=== PATIENT | male | born 1965 | race Two or more races ===

== ENCOUNTER 2021-04-16 06:04 | Day surgery (SDC) | payer SELFPAY ==
[~2021-04-16] VITALS: Wt 82.8 kg
[~2021-04-16 06:04] MED LIST: Crutch1 EACH MISC; HYDR1TAB94 PO; Keflex500 MG PO; TADA10TA PO
--- NOTE | 2021-04-16 07:19 | NUR ---
AMBULATE TO DAY SURGERY. CONFIRMED SURGERY AND SURGEON. PRE OP TEACHING DONE. LUNGS CLEAR.
--- NOTE | 2021-04-16 07:38 | NUR ---
ambulate to BR eptied bladder before going to OR
--- NOTE | 2021-04-16 10:01 | NUR ---
Dressing to procedure site clean, dry, intact with no visible drainage, swelling, erythema or bruising noted. PT TOLERATING PO FLUIDS/SOLIDS
--- NOTE | 2021-04-16 10:31 | NUR ---
Discharge instructions reviewed with patient. Patient verbalizes understanding. Copy given to patient to take home. Discharged via wheelchair to private car for ride home.
== END 2021-04-16 10:31 | disposition home or self-care (01) ==
LOC: ORSCMMR 06:04
PROVIDERS: Surgery
PROC: 8E0W4CZ Robotic Assisted Procedure of Trunk Region, Percutaneous Endoscopic Approach (ICD-10-PCS; principal; 2021-04-16 07:30)
PROC: 0HB7XZX Excision of Abdomen Skin, External Approach, Diagnostic (ICD-10-PCS; principal; 2021-04-16 07:30)
PROC: 0YU64JZ Supplement Left Inguinal Region with Synthetic Substitute, Percutaneous Endoscopic Approach (ICD-10-PCS; principal; 2021-04-16 07:30)
DX: K40.90 Unilateral inguinal hernia, without obstruction or gangrene, not specified as recurrent (principal); D22.5 Melanocytic nevi of trunk; F17.210 Nicotine dependence, cigarettes, uncomplicated
CPT/HCPCS: 49650; 11400; S2900; 88305; A9270; C1781; J0461; J0690; J1100; J1885; J2370; J2405; J2704; J3010; J7120

== ENCOUNTER 2023-04-06 22:26 | Emergency (ER) | payer OTHER ==
[~2023-04-06] VITALS: Ht 185.4 cm; Wt 88.5 kg
[2023-04-06] MEDS ORDERED: AMLODIPINE BES2.5 MG PO (22:43)
[2023-04-06 23:00] VITALS: BP 126/93
[2023-04-06 23:38] LABS: Source, Urine Clean Catch
[2023-04-07 00:02] LABS: Appearance, Urine Bloody (Clear); Bilirubin, Urine Neg (Neg); Blood, Urine 5+ (Neg); Color, Urine Red (P-Yellow); Glucose Qualitative, Urine Neg (Neg); Ketones, Urine 1+ (Neg); Leukocyte Esterase, Urine Neg (Neg); Nitrite, Urine Neg (Neg); Protein, Urine 4+ (Neg); Specific Gravity, Urine 1.015 (1.003-1.022); Urobilinogen, Urine NORM (Normal)
[2023-04-07 00:08] LABS: Bacteria Few /hpf; Red Blood Cells, Urine TNTC /hpf (0-2); Squamous Epithelial Cells Not Seen /hpf (Few)
== END 2023-04-07 01:33 | disposition home or self-care (01) ==
LOC: ER 22:26
PROVIDERS: Emergency Medicine
DX: N36.8 Other specified disorders of urethra (principal); I10 Essential (primary) hypertension; Z88.2 Allergy status to sulfonamides; Z88.8 Allergy status to other drugs, medicaments and biological substances; Z79.899 Other long term (current) drug therapy; Z87.891 Personal history of nicotine dependence
CPT/HCPCS: 81001; 87086; 99283

== ENCOUNTER → 2023-07-13 | Outpatient (CLI) | payer OTHER ==
[~2023-07-13] MED LIST changes: +AMLODIPINE BES2.5 MG PO
== END | disposition home or self-care (01) ==
LOC: LAB SHORT 07:40 → LAB 07:40
DX: J47.9 Bronchiectasis, uncomplicated (principal); J84.9 Interstitial pulmonary disease, unspecified
CPT/HCPCS: 87070; 87205

== ENCOUNTER 2024-01-08 16:36 | Inpatient (IN) | payer OTHER ==
[~2024-01-08] VITALS: Ht 185.4 cm; Wt 77.3 kg
[2024-01-08 17:30] LABS: BASOPHILS ABSOLUTE AUTO 0.08 K/mm3 (0.00-0.23); BASOPHILS PERCENT AUTO 1 % (0-2); EOSINOPHILS ABSOLUTE AUTO 1.06 K/mm3 (0.00-0.68); EOSINOPHILS PERCENT AUTO 7 % (0-6); Hemoglobin 13.6 g/dL (13.5-17.5); IMMATURE GRAN ABSOLUTE AUTO 0.06 K/mm3 (0.00-0.10); IMMATURE GRAN PERCENT AUTO 0 % (0-1); LYMPHOCYTES ABSOLUTE AUTO 0.96 K/mm3 (0.84-5.20); LYMPHOCYTES PERCENT AUTO 6 % (21-46); MONOCYTES ABSOLUTE AUTO 0.98 K/mm3 (0.16-1.47); MONOCYTES PERCENT AUTO 6 % (4-13); Mean Corpuscular HGB 31.6 pg (26.0-34.0); Mean Corpuscular Volume 93 fL (80-100); Mean Platelet Volume 8.5 fL (9.1-12.4); NEUTROPHILS ABSOLUTE AUTO 13.09 K/mm3 (1.96-9.15); NEUTROPHILS PERCENT AUTO 81 % (41-73); Platelet Count 702 K/mm3 (150-400); RDW Coefficient Variation 11.7 % (11.7-14.2); RDW Standard Deviation 39.9 fL (35.1-46.3); Red Blood Cell Count 4.31 M/mm3 (4.30-5.90); White Blood Cell Count 16.23 K/mm3 (4.00-11.30)
[2024-01-08 17:55] LABS: Albumin/Globulin Ratio 0.6 (0.8-1.8); Bilirubin, Total 0.3 mg/dL (0.1-1.0); Bun/Creatinine Ratio 13.9 (12.0-20.0); Calcium, Blood 10.1 mg/dL (8.5-10.1); Creatinine, Blood 0.79 mg/dL (0.60-1.20); Globulin, Blood 5.3 g/dL (2.2-4.0); Potassium, Blood 4.2 mmol/L (3.5-5.5); Total Protein, Blood 8.3 g/dL (6.4-8.2)
[2024-01-08] MEDS ORDERED: OxyCODONE 5 mg/Acetamin 325 mg TABLET PO ONE (19:20)
[2024-01-08] MEDS ORDERED: CefTRIAXone Sodium 1,000 MG in NS 50 ML IV ONE (19:20)
[2024-01-08] MEDS ORDERED: METOPROLOL TART25 MG PO (20:07)
[2024-01-08] MEDS ORDERED: COLACE100 MG PO (20:07)
[2024-01-08] MEDS ORDERED: OXYC5 PO (20:07)
[2024-01-08] MEDS ORDERED: GABA100 PO (20:07)
[2024-01-08] MEDS ORDERED: OMEP20ER PO (20:08)
[2024-01-08] MEDS ORDERED: Ativan1 MG PO (20:08)
[2024-01-08] MEDS ORDERED: ROSU5 PO (20:09)
[2024-01-08] MEDS ORDERED: SILD50TA PO (20:09)
[2024-01-08] MEDS ORDERED: STIOLTO RESPIMAT4 G1 IH (20:09)
[2024-01-08] MEDS ORDERED: Piperacillin/Tazobactam Sod 4.5 GM in NS 100 ML IV ONE (21:05)
[2024-01-08] MEDS ORDERED: Vancomycin HCL 1,250 MG in NS 262.5 ML IV ONE (21:05)
[2024-01-08] MEDS ORDERED: Morphine Sulfate 10 MG/ML 1MLSYR IV ONE (21:40)
[2024-01-08] MEDS ORDERED: Ondansetron HCl 2 MG / ML 2ML Vial IV PRN (22:15)
[2024-01-08] MEDS ORDERED: Acetaminophen 325 MG TABLET PO PRN (22:20)
[2024-01-08] MEDS ORDERED: FentaNYL Citrate 50 MCG/ML 2 ML Injection IV PRN (22:20)
[2024-01-08 22:22] LABS: Automated BF RBC Count 0.017 M/mm3 (0-0); Automated BF WBC Count 5.512 K/mm3 (0-999)
[2024-01-08 22:23] LABS: Body Fluid WBC Count 5512 /mm3 (0-999); RBC Count, Body Fluid 17000 /mm3 (0-0)
[2024-01-08 22:43] LABS: Albumin, Body Fluid 2.4 g/dL; Glucose, Body Fluid 119 mg/dL; Lactate Dehydrogenase, Body Fl 352 U/L; Protein, Body Fluid 4.7 g/dL; Triglycerides, Body Fluid 28 mg/dL
[2024-01-08] MEDS ORDERED: Enoxaparin 40 MG/0.4 ML SYR SC SCH (23:00)
[2024-01-08 23:03] LABS: pH, Body Fluid 8.2
[2024-01-08 23:16] LABS: Total Cell Count, Body Fluid 100
[2024-01-08 23:17] LABS: Appearance, Body Fluid Hazy (Clear); Color, Body Fluid Red (None-Yellow)
[2024-01-08 23:37] LABS: International Normalized Ratio 1.02; Prothrombin Time Results 10.7 Sec (9.7-11.5)
[2024-01-09] VITALS (13 sets, daily range): BP systolic 99–145; BP diastolic 64–99
[2024-01-09 01:11] LABS: Source, Urine Clean Catch
[2024-01-09 01:21] LABS: Bilirubin, Urine Neg (Neg); Blood, Urine Neg (Neg); Glucose Qualitative, Urine Neg (Neg); Ketones, Urine Neg (Neg); Leukocyte Esterase, Urine Neg (Neg); Nitrite, Urine Neg (Neg); Protein, Urine Neg (Neg); Urobilinogen, Urine NORM (Normal); pH, Urine 6.5 (5.0-8.0)
[2024-01-09 01:28] LABS: Appearance, Urine Clear (Clear); Color, Urine Yellow (P-Yellow)
--- NOTE | 2024-01-09 02:01 | NUR ---
ASSUMED CARE PT ARRIVED ON UNIT AT 0113. PT IS A&O X4; SPO2 >92% ON 2LNC; MAP >65. PT DENIES CP, SOB, AND NAUSEA AT THIS TIME. COMPLAINS OF SHARP PAIN ON RIGHT SIDE, ABOUT MID TORSO. PT STATES THAT HE HAS HAD IT CHECKED OUT AND THAT IT'S "ALL INTERNAL". PT STATES PAIN BEGAN WHEN HE COUGHED "REALLY HARD". PAIN IS MINIMAL AT REST AND SPIKES W/ EXERTION. PAIN DOES NOT RADIATE PER PT.
[2024-01-09] MEDS ORDERED: OxyCODONE HCL 5 MG TAB PO PRN (02:45)
[2024-01-09 03:48] LABS: BASOPHILS ABSOLUTE AUTO 0.08 K/mm3 (0.00-0.23); BASOPHILS PERCENT AUTO 1 % (0-2); EOSINOPHILS ABSOLUTE AUTO 0.99 K/mm3 (0.00-0.68); EOSINOPHILS PERCENT AUTO 7 % (0-6); Hematocrit 35.8 % (37.0-53.0); Hemoglobin 12.3 g/dL (13.5-17.5); IMMATURE GRAN ABSOLUTE AUTO 0.05 K/mm3 (0.00-0.10); IMMATURE GRAN PERCENT AUTO 0 % (0-1); LYMPHOCYTES ABSOLUTE AUTO 1.05 K/mm3 (0.84-5.20); LYMPHOCYTES PERCENT AUTO 7 % (21-46); MONOCYTES ABSOLUTE AUTO 0.89 K/mm3 (0.16-1.47); MONOCYTES PERCENT AUTO 6 % (4-13); Mean Corpuscular HGB 31.9 pg (26.0-34.0); Mean Corpuscular HGB Conc 34.4 g/dL (31.5-36.5); Mean Corpuscular Volume 93 fL (80-100); Mean Platelet Volume 8.6 fL (9.1-12.4); NEUTROPHILS ABSOLUTE AUTO 11.19 K/mm3 (1.96-9.15); NEUTROPHILS PERCENT AUTO 79 % (41-73); Platelet Count 546 K/mm3 (150-400); RDW Coefficient Variation 11.9 % (11.7-14.2); RDW Standard Deviation 40.6 fL (35.1-46.3); Red Blood Cell Count 3.85 M/mm3 (4.30-5.90); White Blood Cell Count 14.25 K/mm3 (4.00-11.30)
[2024-01-09 04:10] LABS: Albumin, Blood 2.4 g/dL (3.4-5.0); Albumin/Globulin Ratio 0.5 (0.8-1.8); Bilirubin, Total 0.3 mg/dL (0.1-1.0); Bun/Creatinine Ratio 13.9 (12.0-20.0); Calcium, Blood 9.1 mg/dL (8.5-10.1); Creatinine, Blood 0.72 mg/dL (0.60-1.20); Globulin, Blood 4.4 g/dL (2.2-4.0); Potassium, Blood 3.9 mmol/L (3.5-5.5); Total Protein, Blood 6.8 g/dL (6.4-8.2)
[2024-01-09 06:00] LABS: Influenza A, PCR NEGATIVE (NEGATIVE); Influenza B, PCR NEGATIVE (NEGATIVE); Resp Syncytial Virus, PCR NEGATIVE (NEGATIVE); SARS-Cov-2 (COVID-19) PCR, MMC NEGATIVE (NEGATIVE)
[2024-01-09] MEDS ORDERED: Ipratropium/Albuterol SulF 2.5-0.5MG/3 ML Amp INH SCH (06:40)
[2024-01-09] MEDS ORDERED: Piperacillin/Tazobactam Sod 4.5 GM in NS 100 ML IV SCH (08:00)
[2024-01-09] MEDS ORDERED: Vancomycin HCL 1,250 MG in NS 250 ML IV SCH (09:00)
[2024-01-09] MEDS ORDERED: AmLODIPine Besylate 5 MG Tab PO SCH (09:00)
[2024-01-09] MEDS ORDERED: Docusate Sodium 100 MG Cap PO SCH ×2 (09:00→21:00)
[2024-01-09] MEDS ORDERED: Gabapentin 100 MG Cap PO SCH (09:00)
[2024-01-09] MEDS ORDERED: Metoprolol Tartrate 25 MG Tab PO SCH ×2 (09:00)
--- NOTE | 2024-01-09 09:45 | NUR ---
ASSUMED CARE NOTE. PATIENT WAS AWAKE AND ALERT ON BSSR. HE WAS ABLE TO RECALL INFORMATION RELATING TO HIS HOSPITALIZATION AND EVENTS LEADING UP TO IT. PT WAS TACHYPNIC AND VERBALLY COMPLAINED OF SHARP LOCALIZED PAIN IN HIS BACK DURING BSR. STATED HIS PAIN WAS UNCONTROLLED AND WANTED TO KNOW WHEN HIS NEXT DOSE OF MEDICATION WAS. CONTINUE PLAN OF CARE.
[2024-01-09] MEDS ORDERED: Ipratropium/Albuterol SulF 2.5-0.5MG/3 ML Amp INH PRN (10:55)
[2024-01-09] MEDS ORDERED: TIOTROPIUM INH SCH (10:55)
[2024-01-09] MEDS ORDERED: OLODATEROL INH SCH (10:55)
[2024-01-09] MEDS ORDERED: Ketorolac Tromethamine 15mg Vial IV PRN (13:30)
--- NOTE | 2024-01-09 13:45 | NUR ---
AMBULATED PT. PT REQUESTED TO WALK AROUND AND USE BEDSIDE TOILET. PT VOIDED INDEPENDENTLY, LEANING AGAINST WALL FOR SUPPORT. HE REQUESTED PRIVACY. AFTER URINATING AND PUTTING PANTS ON THE PT SWITCHED TO O2 CANISTER AT 2LPM. PT TOLERATED 2L 02 FOR 60FT BEFORE DESAT TO 80% O2. PT WAS SOB BUT DENIED DIZZINESS. INCREASED O2 TO 3LPM AND PT'S OXYGEN INCREASED TO 96%. HE WAS ABLE TO WALK BACK TO HIS ROOM WITH BREAKS EVERY 20-30 FEET TO CATCH HIS BREATH. HIS O2 REMAINED BETWEEN 86-96% T/O HIS REMAINING WALK. SETTLED PT IN HIS BED, SWITCHED O2 BACK TO 2LPM WITH NO DESAT. PT STATED HE WOULD LIKE TO AMBULATE AGAIN BEFORE DINNER.
[2024-01-09] MEDS ORDERED: Pantoprazole Sodium 40 MG Injection IV SCH (14:00)
--- NOTE | 2024-01-09 16:43 | NUR ---
AMBULATED PT. PT SELF MOTIVATED TO AMBULATE AROUND UNIT AND REQUESTED TO WALK BEFORE HIS ABX WAS STARTED. AMBULATED W/ 2L O2 ON NC. PT WAS ABLE TO MAKE IT TO THE DOORWAY OF HIS ROOM BEFORE DESAT TO 84% AND INCREASED 02 TO 3L. PT SAT IMPROVED TO 96%, HE STOPPED TO CATCH BREATH EVERY 20-30FT AND EXPRESSED SOB BUT NO DISCOMFORT HIS O2 FLUCTUATED BETWEEN 88-94% WHILE WALKING. PT REQUESTED TO CONTINUE WALKING, HOWEVER HE HAD VISITORS COMING AND AGREED TO REST. PT REQUESTS TO AMBULATE AGAIN, GOING OUTSIDE OF THE UNIT AFTER DINNER.
--- NOTE | 2024-01-09 19:07 | NUR ---
SHIFT SUMMARY. PT WAS A&Ox4 THROUGHOUT SHIFT. HE WAS ON 2LPM O2 PER NC, WITH TACHYPNEA IN THE MORNING, IMPROVING IN THE PM AFTER HIS ANXIETY IMPROVED. HE WAS MOTIVATED TO AMBULATE AND WALKED 200 FEET AT 1345 AND 1545 WITH 1 NURSE ASSIST. HE REQUIRED 3LPM O2 VIA NC WHILE AMBULATING OR HE WOULD DESAT TO 80%. ON 3LPM HE REMAINED AT 88-96% CONSISTENTLY WHILE WALKING. PT REPORTED LAST BM 6 DAYS AGO, BUT HAD NOT ATE MUCH IN THE PAST WEEK. HE STATED HE HAD NO TASTE FOR FOOD AND THINGS DIDN'T HAVE FLAVOR TO HIM. THROUGHOUT SHIFT, HE DECLINED BREAKFAST AND TOOK A YOGURT AFTER, ATE MINIMAL AMOUNT OF LUNCH AND 25% OF DINNER. HIS PROVIDED HIM WITH ADDITIONAL FOOD. PT DEMONSTRATED SIGNIFCANT ANXIETY AT HIS LOSS OF FUCTION FROM BASELINE AT HOME AND REQUIRED REASSURANCE AND REMINDER TO USE HIS FLUTTER VALVE AND INCENTIVE SPIROMETER. REPORT GIVEN TO MIKEY RN PCU AND PATIENT TRANSFERRED AT END OF SHIFT TO PCU RM 13.
--- NOTE | 2024-01-09 19:15 | NUR ---
THIS RN SUPERVISED CARE, CHARTING AND REPORT OF THIS PATIENT BY THE STUDENT RN TABITHA, REPORT GIVEN TO JUS JENSEN IN PCU. PT TRANSFERRED WITH TO NEW ROOM AND WAS AMBULATORY TO NEW BED. REMAINS ON OXYGEN VIA NC @ 2L.
[2024-01-09] MEDS ORDERED: Lactobacil 2-S.Thermo-Bifido 1 1 Cap PO SCH (21:00)
[2024-01-10] VITALS (7 sets, daily range): BP systolic 123–144; BP diastolic 76–90
--- NOTE | 2024-01-10 04:52 | NUR ---
SHIFT SUMMARY. PT HAS DONE WELL OVER COURSE OF SHIFT OVERALL. AOX4, PLEASANT, COOPERATIVE WITH CARE, CALLS APPROPRIATELY, ABLE TO MAKE NEEDS KNOWN. PT HAS REQUIRED BEING TITRATED UP TO 4 L O2 VIA NC OVERNIGHT. MOSTLY MAINTAINS >90% WITH SPORADIC DESATURATIONS. WITH TRANSFER/AMBULATION, PT DESATURATED TO LOW 70s EVEN WITH BEING TITRATED UP TO 6 L O2. ONCE BACK INTO BED, TOOK FEW MINUTES TO RESATURATE EVEN WITH INCREASED O2 AND RESTING. HAS USED THE INCENTIVE SPIROMETER SPORADICALLY THROUGHOUT SHIFT. CONSISTENT URINE OUTPUT CHARTED APPROPRIATELY. TELE ON THROUGHOUT SHIFT, NO ACUTE CHANGES OR EVENTS THUS FAR. PAIN HAS BEEN ADEQUATELY MANAGED VIA EMAR. STEADY SBA TRANSFER TO BATHROOM BUT DESATURATES QUICKLY AND TAKES TIME TO RESATURATE. HI FLOW NC PUT IN PLACE BY RT EARLY IN SHIFT DUE TO PT REQUEST HE PREFERS THICKER CANNULA. ABX ADMINISTERED ON SCHEDULE WITHOUT DIFFICULTY. BED LOCKED IN LOWEST POSITION. CALL LIGHT LEFT WITHIN REACH. CONTINUING TO MONITOR.
[2024-01-10] MEDS ORDERED: Omeprazole 20 MG CapCR PO SCH (06:00)
[2024-01-10 08:37] LABS: BASOPHILS ABSOLUTE AUTO 0.08 K/mm3 (0.00-0.23); BASOPHILS PERCENT AUTO 1 % (0-2); EOSINOPHILS ABSOLUTE AUTO 1.17 K/mm3 (0.00-0.68); EOSINOPHILS PERCENT AUTO 9 % (0-6); Hemoglobin 11.8 g/dL (13.5-17.5); IMMATURE GRAN ABSOLUTE AUTO 0.04 K/mm3 (0.00-0.10); IMMATURE GRAN PERCENT AUTO 0 % (0-1); LYMPHOCYTES ABSOLUTE AUTO 0.95 K/mm3 (0.84-5.20); LYMPHOCYTES PERCENT AUTO 7 % (21-46); MONOCYTES ABSOLUTE AUTO 1.08 K/mm3 (0.16-1.47); MONOCYTES PERCENT AUTO 8 % (4-13); Mean Corpuscular HGB 31.6 pg (26.0-34.0); Mean Corpuscular HGB Conc 33.7 g/dL (31.5-36.5); Mean Corpuscular Volume 94 fL (80-100); Mean Platelet Volume 8.9 fL (9.1-12.4); NEUTROPHILS ABSOLUTE AUTO 9.66 K/mm3 (1.96-9.15); NEUTROPHILS PERCENT AUTO 75 % (41-73); Platelet Count 469 K/mm3 (150-400); RDW Coefficient Variation 11.8 % (11.7-14.2); RDW Standard Deviation 40.6 fL (35.1-46.3); Red Blood Cell Count 3.73 M/mm3 (4.30-5.90); White Blood Cell Count 12.98 K/mm3 (4.00-11.30)
[2024-01-10] MEDS ORDERED: Polyethylene Glycol 3350 17 gm PO SCH (09:00)
[2024-01-10 09:02] LABS: Albumin, Blood 2.4 g/dL (3.4-5.0); Albumin/Globulin Ratio 0.6 (0.8-1.8); Bilirubin, Total 0.4 mg/dL (0.1-1.0); Bun/Creatinine Ratio 12.2 (12.0-20.0); Calcium, Blood 9.6 mg/dL (8.5-10.1); Creatinine, Blood 0.82 mg/dL (0.60-1.20); Globulin, Blood 4.3 g/dL (2.2-4.0); Potassium, Blood 4.6 mmol/L (3.5-5.5); Total Protein, Blood 6.7 g/dL (6.4-8.2)
[2024-01-10] MEDS ORDERED: LORazepam 0.5 MG Tab PO PRN (09:55)
[2024-01-10] MEDS ORDERED: OxyCODONE HCL 5 MG TAB PO PRN ×2 (10:15→19:55)
--- NOTE | 2024-01-10 10:54 | NUR ---
AM NOTE this rn assumed care at 0700. vital signs stable. spo2 >90% on 4l nc. tele sr 80-90s patient is alert and oriented x4. perrla. neuro is intact. able to make needs known. patient reports pain in right lung and chest. medicatied per emar. see emar. patient reports exertion with activity. denies chest pain/pressure. see shift assessment for further detials. md lerma in the room this morning and discussing plan of care with the patient and patient . medication changes made, see orders. plan of care is up to date at this time
--- NOTE | 2024-01-10 14:20 | NUR ---
MEDICATED FOR PAIN 6/10 IN THE RIGHT SIDE, AND HEADACHE.
--- NOTE | 2024-01-10 17:15 | NUR ---
SHIFT SUMMARY neuro remains intact. vitals remain stable. no acute changes this shift. see md notes for further detials. patient walked around the unit two times today. requiring 6l nc and then returning back to 3-4l nc with spo2 >90%. plan of care remains up to date
--- NOTE | 2024-01-10 19:55 | NUR ---
SPOKE WITH DR. MENDOZA. NOTIFIED THAT PT INFORMED THAT HE WAS VERBALLY INFORMED THAT HE CAN HAVE THE OXYCODONE Q4P BUT THE ORDERS WERE Q6P AT THE TIME. DR. MENDOZA INFORMED THAT OXYCODONE CAN BE SWITCHED TO Q4P. CLARIFIED MEDICATION DIRECTIONS. WAS NOTIFIED ON SHIFT REPORT THAT THE PLAN WAS TO START WITH TORADOL THEN GIVE TYLENOL IF THAT DID NOT WORK, THEN OXYCODONE IF THAT DID NOT WORK, THEN FENTANYL IF THAT DID NOT WORK. DR. MENDOZA NOTIFIED WE CAN GIVE OXYCODONE ON REQUEST AND IF THAT DOES NOT WORK WE CAN GIVE TORADOL. SWITCHED OXYCODONE TO Q4. WILL INFORM PT AND CONTINUE TO MONITOR.
[2024-01-10] MEDS ORDERED: Albuterol HFA200 ACT/6.7 GM INH INH PRN (22:20)
[2024-01-10] MEDS ORDERED: LORazepam 2 MG/ML 1ML Injection IV PRN (22:40)
[2024-01-11] VITALS (51 sets, daily range): BP systolic 74–204; BP diastolic 52–147
--- NOTE | 2024-01-11 03:39 | NUR ---
PT HAS HAD FLUCTUATING ANXIETY THROUGHOUT SHIFT. OVERALL, PT HAS HAD MUCH MORE FLUCTUATING AND OVERALL INCREASED OXYGEN DEMAND OVER COURSE OF SHIFT. DISCUSSION WITH PT AND OVER SPEAKER PHONE. DISCUSSED HIGH LIKELIHOOD THAT INCREASED O2 DEMAND HAS BEEN MORE ATTRIBUTED TO PT INCREASED ANXIETY AND RESTLESSNESS THAN TO ANY PHYSICAL STIMULI THAT COULD CAUSE INCREASED O2 DEMAND. LIBERTAD AGREED WITH THIS AND BELIEVES THAT PT HAS BEEN MUCH MORE ANXIOUS TONIGHT AND BELIEVES THAT IS CONTRIBUTING TO THE INCREASED O2 DEMAND AND EPISODES OF SOB AND DESATURATION. SEVERAL TIMES THIS RN HAS GONE INTO PT ROOM TO FIND PT HAVING PULLED OFF O2 ACCIDENTALLY, SITTING AT BEDSIDE, OR GRABBING AT LINES. THESE EPISODES TEND TO LINE UP WITH EPISODES OF SOB AND DESATURATION. ADMINISTERED IV ATIVAN TWICE THUS FAR AND PO ATIVAN ONCE AT BEGINNING OF SHIFT. AFTER IV ATIVAN MORESO THAN PO, PT HAS APPEARED MORE RELAXED AND O2 DEMANDS HAVE DECREASED FOR PERIODS OF TIME ALONG WITH TACHYPNEA DECREASING. WHEN RELAXED IN BED, PT HAS MOSTLY MAINTAINED ADEQUATE SATURATION ON 4-5 L O2 WITH SOME EPISODES OF DESATURATION APPEARING TO BE CAUSED BY SOME DEGREE OF MOUTH BREATHING. PT SO FAR HAS NOT TOLERATED O2 MASK OR HAVING NC IN MOUTH RATHER THAN NOSE. WHEN DESATURATED, PT HAS BEEN ABLE TO QUICKLY RESATURATE WHEN PROMPTED TO DEEP BREATHE AND HAVING HIGH FLOW NC TUNED UP TO 14 L. JUST ADMINISTERED SECOND DOSE OF IV ATIVAN AND PT IS NOW RESTING COMFORTABLY IN BED SATURATING >90% ON 4 L O2 VIA NC AND RR HAS DROPPED TO 26 RPM. CONTINUES TO NOT TOLERATE MASK DESPITE MOUTH BREATHING. CONTINUING TO MONITOR.
--- NOTE | 2024-01-11 03:52 | NUR ---
AT THIS TIME PT REPORTS PAIN BEING 5/10 AND WHEN ASKED HOW THE PAIN IS OVERALL HE SAYS "GOOD".
[2024-01-11 04:24] LABS: BASOPHILS ABSOLUTE AUTO 0.07 K/mm3 (0.00-0.23); BASOPHILS PERCENT AUTO 1 % (0-2); EOSINOPHILS PERCENT AUTO 4 % (0-6); Hematocrit 32.8 % (37.0-53.0); Hemoglobin 11.1 g/dL (13.5-17.5); IMMATURE GRAN ABSOLUTE AUTO 0.05 K/mm3 (0.00-0.10); IMMATURE GRAN PERCENT AUTO 0 % (0-1); LYMPHOCYTES ABSOLUTE AUTO 0.61 K/mm3 (0.84-5.20); LYMPHOCYTES PERCENT AUTO 4 % (21-46); MONOCYTES ABSOLUTE AUTO 0.97 K/mm3 (0.16-1.47); MONOCYTES PERCENT AUTO 7 % (4-13); Mean Corpuscular HGB 31.4 pg (26.0-34.0); Mean Corpuscular HGB Conc 33.8 g/dL (31.5-36.5); Mean Corpuscular Volume 93 fL (80-100); Mean Platelet Volume 8.9 fL (9.1-12.4); NEUTROPHILS ABSOLUTE AUTO 11.73 K/mm3 (1.96-9.15); NEUTROPHILS PERCENT AUTO 84 % (41-73); Platelet Count 424 K/mm3 (150-400); RDW Coefficient Variation 11.8 % (11.7-14.2); RDW Standard Deviation 40.3 fL (35.1-46.3); Red Blood Cell Count 3.53 M/mm3 (4.30-5.90); White Blood Cell Count 14.03 K/mm3 (4.00-11.30)
--- NOTE | 2024-01-11 05:40 | NUR ---
LONG CONVERSATION WITH DR. MENDOZA ABOUT PT STATUS. MORNING HAS GONE ON LESS CONVINCED THAT FREQUENT DESATURATIONS, FLUCTUATING OXYGEN DEMANDS, GENERALLY INCREASED OXYGEN DEMANDS CAN BE ATTRIBUTED TO ANXIETY/RESTLESSNESS RATHER THAN SOME PHYSICAL CHANGE OR STIMULI THAT COULD BE CAUSING CHANGES. EXPLAINED STATE OF PT, PROGRESSION OF SHIFT, ETC. PT AT ONE POINT WAS ON NONREBREATHER MASK AT 7-8 L O2 AND MAINTAINING 90-91% O2 WITH SPORADIC DESATURATIONS TO MID-HIGH 80s. SPOKE WITH RIK AYALA WHO ASSESSED PT AND PUT ON AIRVO AT 50 L WITH 51% FIO2. NOTIFIED DR. MENDOZA OF ALL OF THIS. DR. MENDOZA INDICATED IT IS CERTAINLY POSSIBLE THAT PT IS EXPERIENCING INCREASING RESTLESSNESS/ANXIETY THAT IS CONTRIBUTING TO INCREASING O2 DEMAND BUT WANTS TO RULE OUT LUNG CHANGES THAT COULD BE CONTRIBUTING. ORDERED 1V CXR TO BE COMPLETED AT 0700 [address] MENDOZA INQUIRED ABOUT HOW THIS RN THOUGHT PT WOULD TOLERATE BIPAP. INFORMED THAT PT HAS BEEN PULLING AT MASKS ALL NIGHT AND THAT INSTINCT SAYS HE WOULD NOT TOLERATE WELL. COMFORTABLE WITH AIRVO AT THIS TIME DUE TO PT MAINTAINING AT 96% AND TOLERATING WELL THUS FAR. WILL ORDER CXR. PT RESTING NOW. CONTINUING TO CLOSELY MONITOR.
--- NOTE | 2024-01-11 05:49 | NUR ---
SPOKE AGAIN WITH DR. BURNETTE. DIRECTED TO START BIPAP WITH SETTINGS AT 4/8 IF AIRVO DOES NOT WORK. AT THIS TIME, PT RELAXING WITH AIRVO IN PLACE MAINTAINING AT 96% O2 SATURATION. CONTINUING TO MONITOR.
[2024-01-11] MEDS ORDERED: Furosemide 10 MG/ML 4ML Vial IV ONE (08:00)
[2024-01-11 09:23] LABS: PCO2 Arterial 45.5 mmHg (35-45); PO2 Arterial 102 mmHg (80-100); pH Blood Arterial 7.43 (7.35-7.45)
--- NOTE | 2024-01-11 10:43 | NUR ---
TRANSFER TO ICU PT TRANSFERED TO ICU 7 VIA BED AT 1025. PT IS DROWSEY AND SPEECH IS SLIGHTLY SLURRED, BUT PT IS ALERT TO SELF, FAMILY, AND SITUATION. PT IS ABLE TO ANSWER SOME QUESTIONS APPROPRIATELY, BUT IS CONFUSED AT TIMES. PT IS COMPLAINING OF PAIN TO RIGHT CHEST/RIBS. PT ON 15L HIFLOW NC AT THIS TIME. VITAL SIGNS STABLE. SPO2 >92%. RR MID 30'S TO MID 40'S. ABSENT LS TO RIGHT LOWER LUNG WAHL. LS CLEAR OTHERWISE. PT DENIES N/T AND MOVES ALL EXTREMITIES SPONTANEOUSLY. PT ASSISTED TO SIT AT BEDSIDE TO USE URINAL. IV'S SALINE LOCKED. PT SPOUSE AT BEDSIDE. WILL CONTINUE TO MONITOR.
--- NOTE | 2024-01-11 11:07 | NUR ---
am note/transfer of care this rn assumed care at 0700. spo2 >90% on airvo 50l fio2 50% respiration 42 and shallow. blood pressure stable. tele sinus tach 100. patient at the start of shift was anxious and verbalized this. at bedside attempting to help relax the patieint. patient is drowsy, but oriented to place, situation, person, and self. patient will intermittently doze off and while asleep start talking or wake up confused, for example he woke up asking his why she got rid of the dogs and the informed the patient the dogs are at home safe. patient reports having a rough night and when sleeping having nightmares. patient right lower lung ang are absent. upper lobes are clear, left lower lobes dim and coarse. dyspnea with exertion and respiratioins are shallow. gu/gi is intact, patient using bedside urinal and bedside comode. skin patient right side surgical site from right lobectomy (12/17) and thora (01/07). patient denies chest pain/pressure. patient reports headache and pain on right side, rated at 5, medicated per emar. see shift assessment for further detials. md lerma and md damon in to see patient this morning. while md lerma was in the room it was decided to put the patient on bipap due to respirations being in the 30-40 range. patient switched to bipap and abg done. patient not tolerated bipap, increased work of breathing and respiration. md lerma took off the bipap and returned to airvo 50l and 50% work of breathing improved from when on bipap, but remains in the 30-40s range and shallow. md lerma discussed with the patient and to move to icu for elective intubation due to patient current situation and declining in respiratory status. patient and agreed to this plan. this rn gave report to stanton johnston in icu. patient belongings gathered and moved to icu 7 at approx 1015.
[2024-01-11] MEDS ORDERED: MethylPREDNISolone Sod Succ 40 MG VIAL IV SCH (11:30)
[2024-01-11] MEDS ORDERED: propofoL 100 ML IV SCH (13:00)
[2024-01-11] MEDS ORDERED: fentaNYL citrate 25 MCG/ML 30ML Bag IV PRN (13:25)
[2024-01-11] MEDS ORDERED: NS 250 ML IV PRN (13:25)
[2024-01-11] MEDS ORDERED: FentaNYL Citrate 50 MCG/ML 2 ML Injection IV ONE (13:25)
[2024-01-11] MEDS ORDERED: FentaNYL Citrate 50 MCG/ML 2 ML Injection ONE (13:43)
[2024-01-11 14:00] LABS: PCO2 Arterial 54.5 mmHg (35-45); PO2 Arterial 242 mmHg (80-100); pH Blood Arterial 7.35 (7.35-7.45)
[2024-01-11 14:23] LABS: Bun/Creatinine Ratio 14.5 (12.0-20.0); Calcium, Blood 9.1 mg/dL (8.5-10.1); Creatinine, Blood 0.76 mg/dL (0.60-1.20); Potassium, Blood 4.4 mmol/L (3.5-5.5)
[2024-01-11 14:31] LABS: Source, Urine Foley catheter
[2024-01-11] MEDS ORDERED: fentaNYL citrate 1,000 MCG in NS 80 ML IV SCH (14:40)
[2024-01-11 14:43] LABS: Appearance, Urine Clear (Clear); Bilirubin, Urine Neg (Neg); Blood, Urine Neg (Neg); Glucose Qualitative, Urine Neg (Neg); Ketones, Urine 1+ (Neg); Leukocyte Esterase, Urine Neg (Neg); Nitrite, Urine Neg (Neg); Protein, Urine 1+ (Neg); Specific Gravity, Urine 1.015 (1.003-1.022); Urobilinogen, Urine NORM (Normal)
--- NOTE | 2024-01-11 14:44 | NUR ---
INTUBATION PT WITH DESATURATION TO 60'S WITH MINIMAL EXERTION AND CONTINUED INCREASE IN RR TO MID 40'S. DECISION MADE TO INTUBATE BY DR MENDOZA WITH PT CONSENT. PT MED WITH 25 MG IV ETOMIDATE AND 85 MG OF MATTHEW IV. PT INTUBATED AT 1320, WITH BILAT BREATH SOUNDS AND GOOD ETCO2 WAVEFORM NOTED. 8.0 ETT PLACED AT 24 CM AT THE LIPS. OGT PLACED. CXR DONE AND PLACEMENTS CONFIRMED BY DR MENDOZA. RT PRIMO AT BEDSIDE. VENT SETTINGS AC 30, TV 350, PEEP 5, FIO2 45%. PT INITIALLY START ON PROPOFOL AND FENTANYL GTT'S. SEE FLOWSHEET TITRATIONS. PT MED WITH IV FENTANYL AND VERSED PUSHES PER EMAR. PT CONTINUES WITH VENT ASYNCHRONY. ORDERS RECIEVED TO INCREASE FENTANYL GTT TO 150 MCG/HR AND START VERSED GTT. STEINER TEMP PROBE PLACED, UA SENT. SBW RESTRAINTS PLACED. PT CONTINUES TO MOVE ALL EXTREMITIES SPONTANEOUSLY. VITAL SIGNS STABLE. WILL CONTINUE TO MONITOR.
--- NOTE | 2024-01-11 14:50 | NUR ---
Met with pt's Lorie prior to pt's intubation today. She was tearful, states she didn't sleep last night due to talking with pt and being worried. Pt was transferred to ICU today to be intubated following an episode of acute respiratory failure. He recently had a R lung lobectomy, and was found to have cystic fibrosis at that time. Since returning home from surgery, pt's states his breathing began to worsen until they eventually came to ED on the advice of Dr. Pérez. The patient was in distress to the point he was unable to carry on any kind of meaningful conversation today. However, his did speak for him, stating he is going to remain a full code, they want everything done, and states he's too young for all this. Pt's returned home while pt was intubated, he tolerated the procedure well. called Palliative Care this afternoon, to "check in". Told her pt tolerated the procedure well and that he appears comfortable at this time. Will continue to provide support to pt's .
[2024-01-11 14:53] LABS: Color, Urine Pale Yellow (P-Yellow)
[2024-01-11] MEDS ORDERED: Midazolam HCL 50 MG in NS 40 ML IV PRN (15:00)
[2024-01-11] MEDS ORDERED: Midazolam HCl 1MG / ML 2ML Vial IV PRN (15:00)
[2024-01-11] MEDS ORDERED: Lactated Ringer's 1,000 ML IV ONE (15:31)
[2024-01-11] MEDS ORDERED: Lactated Ringer's 500 ML IV ONE (15:35)
--- NOTE | 2024-01-11 18:04 | NUR ---
SHIFT SUMMARY PT INTUBATED AND SEDATED THIS SHIFT. VENT SETTINGS AC 30, TV 350, PEEP 5, FIO2 45%. PT SEDATED WITH PROPOFOL AT 30 MCG/KG/MIN, FENTANYL AT 125 MCG/HR, AND VERSED AT 2 MG/HR. PT RESTING QUIETLY WITHOUT STIMULATION. PT BECOMES EASILY AGITATED WITH TURNING AND SUCTION. PT WITH MINIMAL ETT SECRETIONS, AND LARGE AMOUNT OF THICK, CLEAR ORAL SECRETIONS. PT WITH OGT IN PLACE, CLAMPED AT THIS TIME. PIV'S IN PLACE, NS INFUSING TKO. STEINER TEMP PROBE IN PLACE WITH CLEAR YELLOW OUTPUT NOTED. PT WITH LARGE, LOOSE BM THIS AFTERNOON. PT WITH SBW RESTRAINTS IN PLACE. VITAL SIGNS STABLE, BP SOFT, MAPS REMAIN > 65. PT SPOUSE UPDATED THIS AFTERNOON TO PT CONDITION. WILL CONTINUE TO MONITOR AND REPORT OFF TO ONCOMING RN.
[2024-01-11] MEDS ORDERED: Hydrogen Peroxide 1.5 % Solution MT SCH (20:00)
[2024-01-11 20:17] LABS: Acinetobacter baumannii DNA Not Detected copy/mL (NOT DETECT); Enterobacter cloacae DNA Not Detected copy/mL (NOT DETECT); Escherichia coli DNA Not Detected copy/mL (NOT DETECT); Haemophilus influenzae DNA Not Detected copy/mL (NOT DETECT); Klebsiella aerogenes DNA Not Detected copy/mL (NOT DETECT); Klebsiella oxytoca DNA Not Detected copy/mL (NOT DETECT); Klebsiella pneumoniae DNA Not Detected copy/mL (NOT DETECT); Moraxella catarrhalis DNA Not Detected copy/mL (NOT DETECT); Proteus sp DNA Not Detected copy/mL (NOT DETECT); Pseudomonas aeruginosa DNA Not Detected copy/mL (NOT DETECT); Serratia marcescens DNA Not Detected copy/mL (NOT DETECT); Staphylococcus aureus DNA Not Detected copy/mL (NOT DETECT); Streptococcus agalactiae DNA Not Detected copy/mL (NOT DETECT); Streptococcus pneumoniae DNA Not Detected copy/mL (NOT DETECT); Streptococcus pyogenes DNA Not Detected copy/mL (NOT DETECT)
[2024-01-11 20:18] LABS: Adenovirus DNA Not Detected (NOT DETECT); Chlamydia pneumonia Not Detected (NOT DETECT); Human Coronavirus RNA Not Detected (NOT DETECT); Human Metapneumovirus RNA Not Detected (NOT DETECT); Influenza virus A RNA Not Detected (NOT DETECT); Influenza virus B RNA Not Detected (NOT DETECT); Legionella pneumophila Not Detected (NOT DETECT); Mycoplasma pneumoniae Not Detected (NOT DETECT); Parainfluenza virus RNA Not Detected (NOT DETECT); Respiratory syncytial Vir RNA Not Detected (NOT DETECT); Rhinovirus+Enterovirus RNA Not Detected (NOT DETECT)
[2024-01-11 21:47] LABS: Base Excess Venous 6.9 mmol/L; PCO2 Venous 55.5 mmHg (38-42); pH Blood Venous 7.37 (7.34-7.37)
--- NOTE | 2024-01-11 22:00 | NUR ---
ASSUMED CARE AT 1900 PT LAYING IN BED INTUBATED AND SEDATED AT SHIFT CHANGE. HE IS SEDATED WITH PROPOFOL INFUSING AT 40MCG/KG/MIN, VERSED INFUSING AT 2MG/HR, AND FENTANYL INFUSING AT 125MCG/HR; SEDATION CHALLENGING WITH A LABILE RASS OF -4 OR +2; WHEN RASS IS +2 HE DOSE NOT FOLLOW DIRECTIONS AND PULLS ON RESTRAINTS REACHING FOR ETT; HE MOVES ALL EXTREMITIES DURING THIS TIME. CHEST TUBE PLACED AT THE BEGINNING OF SHIFT TO RT LATERAL/POSTERIOR CHEST WALL AND IS TO WATER SEAL; SEROSANGUINOUS DRAINAGE NOTED AND SAMPLE SENT TO LAB; HE TOLERATED THE PROCEDURE WELL; VENT SETTINGS NOW AC/VC 28/350/7/60%; RR 28-30. AFEBRILE. HR 70'S. SBP 90'S WITH MAP 65-75. OG CLAMPED; RECTAL TUBE PLACE D/T LARGE LIQUID BM. STEINER IN PLACE AND DRAINING TO GRAVITY. CENTRAL LINE TO RIJ PLACED; CHEST XRAY COMPLETED AFTERWARDS AND CONFIRMED CENTRAL LINE, CHEST TUBE, AND ETT VARIFIED BY DR MENDOZA. SEE SHIFT ASSESSMENT FOR FULL ASSESSMENT.
[2024-01-11] MEDS ORDERED: Etomidate 2MG / ML 10ML Vial IV ONE (22:45)
[2024-01-11] MEDS ORDERED: Propofol 10mg/ml 20 ml Vial (Procedural) IV ONE (22:45)
[2024-01-11] MEDS ORDERED: Rocuronium Bromide 10 MG/ML 5ML Injection IV ONE (22:45)
[2024-01-12] VITALS (82 sets, daily range): BP systolic 76–114; BP diastolic 48–78
[2024-01-12 04:30] LABS: BASOPHILS ABSOLUTE AUTO 0.04 K/mm3 (0.00-0.23); BASOPHILS PERCENT AUTO 0 % (0-2); EOSINOPHILS ABSOLUTE AUTO 0.17 K/mm3 (0.00-0.68); EOSINOPHILS PERCENT AUTO 1 % (0-6); Hematocrit 31.1 % (37.0-53.0); Hemoglobin 10.3 g/dL (13.5-17.5); IMMATURE GRAN ABSOLUTE AUTO 0.03 K/mm3 (0.00-0.10); IMMATURE GRAN PERCENT AUTO 0 % (0-1); LYMPHOCYTES ABSOLUTE AUTO 0.74 K/mm3 (0.84-5.20); LYMPHOCYTES PERCENT AUTO 6 % (21-46); MONOCYTES ABSOLUTE AUTO 0.94 K/mm3 (0.16-1.47); MONOCYTES PERCENT AUTO 8 % (4-13); Mean Corpuscular HGB 31.2 pg (26.0-34.0); Mean Corpuscular HGB Conc 33.1 g/dL (31.5-36.5); Mean Corpuscular Volume 94 fL (80-100); Mean Platelet Volume 9.1 fL (9.1-12.4); NEUTROPHILS ABSOLUTE AUTO 10.59 K/mm3 (1.96-9.15); NEUTROPHILS PERCENT AUTO 85 % (41-73); Platelet Count 379 K/mm3 (150-400); RDW Coefficient Variation 11.8 % (11.7-14.2); RDW Standard Deviation 41.2 fL (35.1-46.3); White Blood Cell Count 12.51 K/mm3 (4.00-11.30)
[2024-01-12 04:54] LABS: Albumin/Globulin Ratio 0.5 (0.8-1.8); Bilirubin, Total 0.3 mg/dL (0.1-1.0); Bun/Creatinine Ratio 15.3 (12.0-20.0); Calcium, Blood 9.5 mg/dL (8.5-10.1); Creatinine, Blood 0.85 mg/dL (0.60-1.20); Globulin, Blood 4.2 g/dL (2.2-4.0); Phosphorus, Blood 4.6 mg/dL (2.5-4.9); Potassium, Blood 4.3 mmol/L (3.5-5.5); Total Protein, Blood 6.2 g/dL (6.4-8.2)
--- NOTE | 2024-01-12 06:29 | NUR ---
END OF SHIFT SUMMARY NO ACUTE EVENTS SINCE LAST NOTE. HE CONT TO BE SEDATED WITH PROPOFOL INFUSING AT 25MCG/KG/MIN, VERSED INFUSING AT 2MG/HR, AND FENTANYL INFUSING AT 125MCG/HR; SEDATION CHALLENING AT TIMES WITH RASS EITHER -4 OR +2; ONE PUSH OF ATIVAN GIVEN DURING BED BATH, HE WAS SITTING UP, REACHING FOR TUBE, AND FIGHTING AGAINST VENT, ATIVAN HELPFUL. VENT SETTINGS AC/VC 28/350/7/60%; CHEST TUBE IN PLACE WITH 220ML OUTPUT. AFEBRILE. HR 60-70'S. SBP 80-90'S WITH MAP 65-70'S. OG CLAMPED; RECTAL TUBE WITH SMALL AMOUNT OF OUTPUT. STEINER IN PLACE AND DRAINING TO GRAVITY. CENTRALL INE TO RIJ PATENT WITH DRESSING C/D/I. WILL REPORT TO AM RN WHEN AVAIALBLE.
--- NOTE | 2024-01-12 07:00 | NUR ---
ASSUMPTION OF CARE PT RECEIVING PROPOFOL 25MCG/KG/MIN, FENTANYL 125MCG/HR, AND VERSED 2MG/HR. HE IS INTUBATED WITH VENT SETTINGS AC/VC 28/350/7/60%. RASS -3. COUGH/GAG INTACT. MOVES ALL EXTREMITIES BUT NOT FOLLOWING COMMANDS AT THIS TIME. LUNGS ARE COARSE. R POSTERIOR CHEST TUBE CONNECTED TO WATER SEAL DRAINING SEROSANGUINEOUS FLUID. SITE VISUALIZED WITH LIBERTAD LUU. NO CREPITUS NOTED. SINUS RHYTHM ON MONITOR WITH RATE IN 60S-70S. BP SOFT BUT MAP >65. OGT CLAMPED. BOWEL TONES ACTIVE, RECTAL TUBE PATENT. PT AFEBRILE. TEMP STEINER PATENT AND DRAINING TO GRAVITY. RIJ CENTRAL LINE DRESSING C/D/I.
[2024-01-12 08:29] LABS: Vancomycin, Trough 18.8 ug/mL (5.0-10.0)
[2024-01-12] MEDS ORDERED: Ipratropium/Albuterol SulF 2.5-0.5MG/3 ML Amp INH SCH (08:50)
[2024-01-12] MEDS ORDERED: Albuterol 2.5 MG/3 ML VIAL INH PRN (08:50)
[2024-01-12] MEDS ORDERED: Acetaminophen 160MG / 5ML 10.15 UDC PT PRN (11:05)
[2024-01-12] MEDS ORDERED: HYDROmorphone HCl/Pf 1MG SYR IV PRN (11:45)
[2024-01-12] MEDS ORDERED: MethylPREDNISolone Sod Succ 40 MG VIAL IV SCH (12:00)
--- NOTE | 2024-01-12 13:10 | NUR ---
[facility] UPDATE PLAN REMAINS TO TRANSFER TO [facility] WHEN BED IS AVAILABLE. NICOLAS FROM [facility] CALLED FOR CLINICAL UPDATED AND PROVIDED UPDATED INFO. NO UPDATED ETA FOR AN AVAILABLE BED BUT PT REMAINS ON LIST. PT UPDATED AND AGREEABLE TO PLAN.
[2024-01-12] MEDS ORDERED: Bisacodyl 10 MG Supp PR PRN (15:20)
[2024-01-12] MEDS ORDERED: Magnesium Hydroxide Conc 10 ML UDC PT PRN (15:20)
[2024-01-12] MEDS ORDERED: Gabapentin 250 MG/5 ML ORAL SYRINGE PT SCH (16:00)
--- NOTE | 2024-01-12 17:41 | NUR ---
SHIFT SUMMARY PT RECEIVING PROPOFOL 35MCG/KG/MIN AND VERSED 3MG/HR. HE REMAINS INTUBATED WITH VENT SETTINGS AC/VC 28/320/7/55%. RASS -1/-3. WITH SEDATION ON, PT WAS ABLE TO OPEN EYES, TRACK MOVEMENTS, FOLLOW SIMPLE COMMANDS AND COMMUNICATE BY NODDING/SHAKING HEAD TO ANSWER QUESTIONS. LUNGS ARE COARSE. R POSTERIOR CHEST TUBE REMAINS IN PLACE WITH 120ML SEROSANGUINEOUS DRAINAGE. SINUS RHYTHM ON MONITOR WITH RATE IN 60S-70S. MAP >65. TUBE FEEDINGS INITIATED VIA OGT THIS AFTERNOON. RECTAL TUBE PATENT WITH LIQUID BROWN DRAINAGE IN TUBING. TMAX 100.6. TEMP STEINER PATENT AND DRAINING TO GRAVITY WITH SHIFT OUTPUT OF 500ML. AT BEDSIDE THIS EVENING AND UPDATED.
[2024-01-12 19:15] LABS: PCO2 Arterial 50.6 mmHg (35-45); PO2 Arterial 94.8 mmHg (80-100)
[2024-01-12] MEDS ORDERED: Metoprolol Tartrate 25 MG Tab PT SCH (21:00)
[2024-01-12] MEDS ORDERED: Docusate Sodium 100 MG UDC PO SCH (21:00)
--- NOTE | 2024-01-12 21:42 | NUR ---
ASSUMED CARE AT 1900 PT IS LAYING IN BED INTUBATED WITH AT BEDSIDE. HE IS SEDATED WITH PROPOFOL INFUSING AT 35MCG/KG/MIN AND VERSED INFUSING AT 3MG/HR; RASS -2; HE IS RESPONSIVE TO VERBAL STIMULI AND ANSWERING Y/N QUESTIONS SLOWLY BUT APPROPRIATLY; NODDED "YES" TO PAIN, CPOT 4, PRN DILAUDID GIVEN AND HELPFUL. VENT SETTINGS AC/VC 28/320/7/55%; CHEST TUBE TO RT POSTERIOR CHEST WALL TO WATER SEAL; SMALL AMOUNT OF SEROSANGUINEOUS DRAINAGE; NO CREPITUS NOTED. AFEBRILE. NSR WITH HR 60-70'S. SBP 90'S WITH MAP 65-70. VHP INFUSING VIA OG AT 25ML/HR (GOAL 55ML/HR) WITH 30ML WATER FLUSHES Q2HR; RECTAL TUBE IN PLACE AND DRAINING BROWN STOOL. STEINER IN PLACE AND DRAINING TO GRAVITY. CENTRAL LINE TO RIJ PATENT WITH DRESSING C/D/I. SEE SHIFT ASSESSMENT FOR FULL ASSESSMENT. PT AT BEDSIDE IS PLEASENT AND ASKS QUESTIONS APPROPRIATLY. SHE STAYED AT BEDSIDE TILL 2129.
[2024-01-13] VITALS (39 sets, daily range): BP systolic 86–154; BP diastolic 60–109
[2024-01-13 04:29] LABS: BASOPHILS ABSOLUTE AUTO 0.01 K/mm3 (0.00-0.23); BASOPHILS PERCENT AUTO 0 % (0-2); EOSINOPHILS ABSOLUTE AUTO 0.01 K/mm3 (0.00-0.68); EOSINOPHILS PERCENT AUTO 0 % (0-6); IMMATURE GRAN ABSOLUTE AUTO 0.04 K/mm3 (0.00-0.10); IMMATURE GRAN PERCENT AUTO 0 % (0-1); LYMPHOCYTES ABSOLUTE AUTO 0.41 K/mm3 (0.84-5.20); LYMPHOCYTES PERCENT AUTO 4 % (21-46); MONOCYTES ABSOLUTE AUTO 0.34 K/mm3 (0.16-1.47); MONOCYTES PERCENT AUTO 4 % (4-13); Mean Corpuscular HGB 31.7 pg (26.0-34.0); Mean Corpuscular HGB Conc 33.3 g/dL (31.5-36.5); Mean Corpuscular Volume 95 fL (80-100); Mean Platelet Volume 9.3 fL (9.1-12.4); NEUTROPHILS ABSOLUTE AUTO 8.99 K/mm3 (1.96-9.15); NEUTROPHILS PERCENT AUTO 92 % (41-73); Platelet Count 340 K/mm3 (150-400); RDW Coefficient Variation 11.9 % (11.7-14.2); RDW Standard Deviation 41.1 fL (35.1-46.3); Red Blood Cell Count 3.15 M/mm3 (4.30-5.90)
[2024-01-13 04:52] LABS: Albumin, Blood 1.9 g/dL (3.4-5.0); Albumin/Globulin Ratio 0.4 (0.8-1.8); Bilirubin, Total 0.2 mg/dL (0.1-1.0); Bun/Creatinine Ratio 23.4 (12.0-20.0); Calcium, Blood 9.1 mg/dL (8.5-10.1); Creatinine, Blood 0.73 mg/dL (0.60-1.20); Globulin, Blood 4.3 g/dL (2.2-4.0); Magnesium, Blood 2.2 mg/dL (1.6-2.4); Phosphorus, Blood 3.5 mg/dL (2.5-4.9); Potassium, Blood 4.4 mmol/L (3.5-5.5); Total Protein, Blood 6.2 g/dL (6.4-8.2)
[2024-01-13 05:38] LABS: BASOPHILS PERCENT MAN 0 % (0-2); EOSINOPHILS PERCENT MAN 0 % (0-6); LYMPHOCYTES ABSOLUTE MAN 0.29 K/mm3 (0.84-5.20); LYMPHOCYTES PERCENT MAN 3 % (21-46); MONOCYTES ABSOLUTE MAN 0.78 K/mm3 (0.16-1.47); MONOCYTES PERCENT MAN 8 % (4-13); NEUTROPHILS ABSOLUTE MAN 8.72 K/mm3 (1.96-9.15); SEG NEUTROPHILS PERCENT MAN 89 % (41-73); TOTAL CELLS COUNTED 100
--- NOTE | 2024-01-13 06:45 | NUR ---
END OF SHIFT SUMMARY NO ACUTE EVENTS OVERNIGHT. HE CONT TO BE SEDATED WITH PROPOFOL INFUSING AT 35MCG/MIN AND VERSED INFUSING AT 3MG/HR; HE CONT TO BE ABLE TO ANSWER QUESTIONS APPROPRIATLY; NODDED "YES" TO PAIN AROUND Q4HR, PRN DILAUDID GIVEN AND HELPFUL. VENT SETTINGS AC/VC 28/320/7/40%; CHEST TUBE IN PLACE WITH SMALL AMOUNT OF SEROUS DRAINAGE. AFEBRILE. HR 50-70'S. SBP 90-110. VHP INFUSING VIA OG AT 45ML/HR (GOAL 55ML/HR) WITH 30ML WATER FLUSHES Q4HR; RECTAL TUBE IN PLACE WITH MODERATE AMOUNT OF OUTPUT. STEINER IN PLACE AND DRAINING TO GRAVITY. CENTRAL LINE TO RIJ PATENT WITH DRESSING C/D/I. REPORT GIVEN TO ELIZABETH LUU.
--- NOTE | 2024-01-13 07:00 | NUR ---
ASSUMPTION OF CARE PT RECEIVING PROPOFOL 25MCG/KG/MIN AND VERSED 3MG/HR. HE REMAINS INTUBATED WITH VENT SETTINGS AC/VC 28/320/7/40%. PT APPEARS AWAKE, ANSWERING QUESTIONS BY NODDING/SHAKING HEAD. PT INDICATES HE WANTS TO WRITE. PROVIDED PAPER AND PEN. PT WRITES HE WANTS HIS LIBERT[employer]. PHONE CALL PLACED TO LIBERT[employer]. PT HAS DIFFICULTY WRITING BUT IS ABLE TO COMMUNICATE SOME. PT PROVIDED EDUCATION REGARDING ETT AND IMPORTANCE OF NOT TOUCHING TUBES/LINES. PT NODS IN UNDERSTANDING. PROPOFOL AND VERSED TITRATED DOWN. PT TOLERATING. LUNGS ARE COARSE. SMALL AMOUNT OF ETT SECRETIONS. SINUS RHYTHM ON MONITOR WITH RATE IN 50S-80S. BP STABLE WITH MAP >65. TUBE FEEDING INFUSING VIA OGT AT 45ML/HR WITH GOAL RATE OF 55ML/HR. TEMP STEINER PATENT AND DRAINING TO GRAVITY.
[2024-01-13] MEDS ORDERED: FentaNYL Citrate 50 MCG/ML 2 ML Injection IV PRN (17:40)
--- NOTE | 2024-01-13 18:35 | NUR ---
UPDATE/SHIFT SUMMARY PT AWAKE MOST OF THE DAY. HE WAS RECEIVING PROPOFOL 20MCG/KG/HR AND VERSED 2MG/HR. PT ABLE TO COMMUNICATE BY NODDING/SHAKING HIS HEAD AND BY WRITING. HE HAS DIFFICULTY SPELLING AT BASELINE PER BUT ABLE TO COMMUNICATE SOME. PT MEDICATED FOR PAIN THROUGHOUT THE SHIFT PER EMAR. OFFERED PT AND VARIOUS TIMES TO INCREASE SEDATION. PT ADAMENTLY SHOOK HEAD "NO" AND STS MORE VISITORS WERE COMING IN TO VISIT HIM. HE REMAINED ON AC/VC 28/320/7/50%. OCCASIONALLY COUGHING WITH MINIMAL THICK WHITE SECRETIONS, ETT SUCTIONED NEEDED. TRANSITIONED FROM VERSED TO PRECEDEX THIS SHIFT, PT APPEARS TO TOLERATE WELL. PT'S CONTACTED DR MENDOZA WHO CAME TO BEDSIDE. FAMILY EXPRESSED CONCERNS, DR MENDOZA PROVIDED EDUCATION AND UPDATE IN PT STATUS. PROVIDED ASSURANCE TO PT THAT IT IS SAFE TO SLEEP. SEDATION INCREASED, PROPOFOL AT 30MCG/KG/MIN AND PRECEDEX 0.5MCG/KG/HR. PT REMAINS AWAKE DESPITE INCREASED SEDATION. R POSTERIOR CHEST TUBE REMAINS IN PLACE AND DRAINING SEROSANGUINEOUS FLUID. TUBE FEEDINGS INFUSING VIA OGT. RECTAL TUBE PATENT AND DRAINING TO GRAVITY. STEINER PATENT AND DRAINING TO GRAVITY. CURRENTLY, PT RECEIVING PROPOFOL 50MCG/KG/MIN AND PRECEDEX 0.7MCG/KG/HR. VISITOR AT BEDSIDE ASSISTING WITH COMMUNICATION VIA WHITEBOARD. POSITIONAL CUFF LEAK, RT NOTIFIED AND AT BEDSIDE.
[2024-01-14] VITALS (35 sets, daily range): BP systolic 96–146; BP diastolic 58–105
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
[2024-01-14 04:42] LABS: BASOPHILS ABSOLUTE AUTO 0.01 K/mm3 (0.00-0.23); BASOPHILS PERCENT AUTO 0 % (0-2); EOSINOPHILS ABSOLUTE AUTO 0.01 K/mm3 (0.00-0.68); EOSINOPHILS PERCENT AUTO 0 % (0-6); Hemoglobin 10.8 g/dL (13.5-17.5); IMMATURE GRAN ABSOLUTE AUTO 0.07 K/mm3 (0.00-0.10); IMMATURE GRAN PERCENT AUTO 1 % (0-1); LYMPHOCYTES ABSOLUTE AUTO 0.45 K/mm3 (0.84-5.20); LYMPHOCYTES PERCENT AUTO 4 % (21-46); MONOCYTES PERCENT AUTO 3 % (4-13); Mean Corpuscular HGB 31.1 pg (26.0-34.0); Mean Corpuscular HGB Conc 32.7 g/dL (31.5-36.5); Mean Corpuscular Volume 95 fL (80-100); Mean Platelet Volume 9.3 fL (9.1-12.4); NEUTROPHILS ABSOLUTE AUTO 10.84 K/mm3 (1.96-9.15); NEUTROPHILS PERCENT AUTO 92 % (41-73); Platelet Count 353 K/mm3 (150-400); RDW Standard Deviation 41.8 fL (35.1-46.3); Red Blood Cell Count 3.47 M/mm3 (4.30-5.90); White Blood Cell Count 11.78 K/mm3 (4.00-11.30)
[2024-01-14 05:02] LABS: Albumin, Blood 2.1 g/dL (3.4-5.0); Albumin/Globulin Ratio 0.5 (0.8-1.8); Bilirubin, Total 0.3 mg/dL (0.1-1.0); Bun/Creatinine Ratio 27.4 (12.0-20.0); Calcium, Blood 8.9 mg/dL (8.5-10.1); Creatinine, Blood 0.73 mg/dL (0.60-1.20); Globulin, Blood 4.4 g/dL (2.2-4.0); Phosphorus, Blood 3.4 mg/dL (2.5-4.9); Potassium, Blood 4.2 mmol/L (3.5-5.5); Total Protein, Blood 6.5 g/dL (6.4-8.2)
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
--- NOTE | 2024-01-14 07:20 | NUR ---
ASSUME CARE: I have assumed care of this patient.
[2024-01-14] MEDS ORDERED: Midazolam HCL 50 MG in NS 40 ML IV PRN (09:35)
[2024-01-14] MEDS ORDERED: QUEtiapine Fumarate 25 MG Tab PT SCH (10:00)
[2024-01-14 10:24] LABS: Thyroid Stimulating Hormone 0.918 uIU/mL (0.360-4.800)
[2024-01-14] MEDS ORDERED: Thiamine HCl 100 MG in NS 50 ML IV SCH (11:00)
[2024-01-14] MEDS ORDERED: Folic Acid 1 MG in NS 50 ML IV SCH (11:00)
[2024-01-14] MEDS ORDERED: FentaNYL Citrate 50 MCG/ML 2 ML Injection IV PRN (11:05)
--- NOTE | 2024-01-14 19:25 | NUR ---
SHIFT SUMMARY: Pt was transitioned off precedex and restarted on versed today with good effect. Seroquil also given per tube. Pt was very agitated throughout the day. He would hit the side rails, gesture for items around room, and flip off nurse. Pt's was updated at bedside this morning. She received a few more updates via telephone. Pt had increased secretions this afternoon; sputum culture sent. No crepitus noted around chest tube. Hines patent and draining to gravity.
--- NOTE | 2024-01-14 23:18 | NUR ---
ASSUMED CARE AT 1900 PT LAYING IN BED SEDATED AND INTUBATED. HE IS SEDATED WITH PROPOFOL INFUSING AT 50MCG/KG/MIN AND VERSED INFUSING AT 8MG/HR; RASS -3, WILL TITRATE DOWN FOR A GOAL OF RASS -2. VENT SETTINGS AC/VC 28/320/7/45%; CHEST TUBE TO WATER SEAL WITH SEROSANGUINEOUS FLUID. AFEBRILE. HR 50-60'S. SBP 120'S WITH MAP >65. VHP INFUSING VIA OG AT 55ML/HR (GOAL) WITH 30ML WATER FLUSHES Q2HR; RECTAL TUBE IN PLACE AND DRAINING BROWN STOOL. STEINER IN PLACE AND DRAINING TO GRAVITY. CENTRAL LINE TO RIJ PATENT WITH DRESSING C/D/I. SEE SHIFT ASSESSMENT FOR FULL ASSESSMENT. PT LIBERTAD CALLED FOR AN UPDATE. SHE WAS PLEASENT AND APPRECIATIVE OF STAFF BUT STRESSED ABOUT CURRENT SITUATION.
[2024-01-15] VITALS (35 sets, daily range): BP systolic 104–157; BP diastolic 72–95
[2024-01-15 04:21] LABS: BASOPHILS ABSOLUTE AUTO 0.02 K/mm3 (0.00-0.23); BASOPHILS PERCENT AUTO 0 % (0-2); EOSINOPHILS PERCENT AUTO 1 % (0-6); Hematocrit 30.7 % (37.0-53.0); Hemoglobin 9.9 g/dL (13.5-17.5); IMMATURE GRAN ABSOLUTE AUTO 0.05 K/mm3 (0.00-0.10); IMMATURE GRAN PERCENT AUTO 1 % (0-1); LYMPHOCYTES ABSOLUTE AUTO 0.46 K/mm3 (0.84-5.20); LYMPHOCYTES PERCENT AUTO 4 % (21-46); MONOCYTES ABSOLUTE AUTO 0.73 K/mm3 (0.16-1.47); MONOCYTES PERCENT AUTO 7 % (4-13); Mean Corpuscular HGB 31.2 pg (26.0-34.0); Mean Corpuscular HGB Conc 32.2 g/dL (31.5-36.5); Mean Corpuscular Volume 97 fL (80-100); Mean Platelet Volume 9.6 fL (9.1-12.4); NEUTROPHILS PERCENT AUTO 87 % (41-73); Platelet Count 356 K/mm3 (150-400); RDW Coefficient Variation 12.2 % (11.7-14.2); RDW Standard Deviation 43.8 fL (35.1-46.3); Red Blood Cell Count 3.17 M/mm3 (4.30-5.90); White Blood Cell Count 10.56 K/mm3 (4.00-11.30)
[2024-01-15 04:43] LABS: Albumin, Blood 1.9 g/dL (3.4-5.0); Anion Gap 4 mmol/L (3-11); Blood Urea Nitrogen 20 mg/dL (8-24); Bun/Creatinine Ratio 28.1 (12.0-20.0); CO2, Blood 34 mmol/L (21-32); Calcium, Blood 8.9 mg/dL (8.5-10.1); Chloride, Blood 110 mmol/L (98-108); Creatinine, Blood 0.71 mg/dL (0.60-1.20); Glomerular Filtration Rate 105 (60-); Glucose, Blood 136 mg/dL (70-99); Phosphorus, Blood 3.1 mg/dL (2.5-4.9); Potassium, Blood 4.3 mmol/L (3.5-5.5); Sodium, Blood 144 mmol/L (136-145)
--- NOTE | 2024-01-15 06:27 | NUR ---
END OF SHIFT SUMMARY NO ACUTE EVENTS OVERNIGHT. SLOWLY BROUGHT SEDATION DOWN TO ACHIEVE A RASS OF -2; PROPOFOL INFUSING AT 50MCG/KG/MIN AND VERSED INFUSING AT 5MG/HR. VENT SETTINGS AC/VC 28/320/7/40%; CHEST TUBE TO WATER SEAL WITH SMALL AMOUNT OF OUTPUT. HR 50-60'S. SBP 120-130'S. VHP INFUSING VIA OG AT 55ML/HR (GOAL) WITH 30ML WATER FLUSHES Q2HR. RECTAL TUBE AND STEINER IN PLACE AND DRAINING TO GRAVITY. CENTRAL LINE TO RIJ PATENT WITH DRESSING C/D/I. WILL REPORT TO AM RN WHEN AVAILABLE.
--- NOTE | 2024-01-15 07:40 | NUR ---
ASSUMED CARE: REPORT RECEIVED FROM LIBERTAD Garcia RN. ASSUMED CARE OF THIS PT AT APPROX 0700. ON ASSESSMENT, THE PT IS INTUBATED & LIGHTLY SEDATED, RASS 0/+1. PROPOFOL & VERSED INFUSING - TITRATIONS IN FLOWSHEET. THE PT HAS BEEN REDIRECTED & INSTRUCTED NOT TO TOUCH THE ETT OR PULL ON LINES, HE THEN "FLIPS OFF" STAFF W/ MIDDLE FINGERS ON BOTH HANDS & GESTURES FOR US TO LEAVE THE ROOM. LS COARSE/ MOIST T/O, DIM ON RIGHT SIDE. HX RECENT RML/RLL LOBECTOMY. VENT SETTINGS: AC/VC 28/320/7/40% W/ O2 SATS > 95%. OCCASIONAL PRODUCTIVE COUGH W/ COPIOUS AMNTS THICK WHITE SPUTUM SUCTIONED THROUGH ETT. MONITOR SHOWS SB-SR W/ HR 50-60s, BP STABLE. OGT IN PLACE W/ TUBE FEEDS VHP INFUSING AT GOAL RATE 55 ML/HR W/ NO S/SX INTOLERANCE NOTED. RECTAL TUBE IN PLACE, DRAINING BROWN LIQUID STLS. SKIN CONDITION OVERALL INTACT, Q2H REPOSITIONING TO MAINTAIN SKIN INTEGRITY. WILL CONTINUE TO MONITOR & UPDATE NEEDED.
[2024-01-15 08:57] LABS: Vancomycin, Trough 17.4 ug/mL (5.0-10.0)
--- NOTE | 2024-01-15 09:30 | NUR ---
DR BLEDSOE: PROVIDER AT BEDSIDE THIS AM TO EVAL PT. HE BELIEVES THE PT COULD BE EXPERIENCING ICU DELERIUM SYMPTOMS & WOULD LIKE TO TITRATE VERSED DOWN/ OFF. OLANZAPINE ORDERED & VERSED SHOULD BEGIN TO BE TITRATED DOWN 1 HR AFTER OLANZAPINE ADMIN. CHEST TUBE OUTPUT INCREASED YESTERDAY, NO PLANS FOR REMOVAL AT THIS TIME. PEEP DECREASED TO 5 & FIO2 DECREASED TO 30%. NO OTHER CHANGES AT THIS TIME.
[2024-01-15] MEDS ORDERED: OLANZapine 10 MG Tab PT SCH (10:00)
[2024-01-15] MEDS ORDERED: OLANZapine 10 MG Vial IM PRN (10:40)
--- NOTE | 2024-01-15 18:05 | NUR ---
SHIFT SUMMARY: NO ACUTE CHANGES SINCE PRIOR UPDATES. THE PT HAS BEEN ABLE TO REST THIS SHIFT W/ LESS AGITATION NOTED. VERSED TITRATED DOWN THROUGHOUT DAY, NOW INFUSING AT 3 MG/HR W/ PROPOFOL INFUSING AT 55 MCG/KG/MIN. FENTANYL PRN SEDATION ADJUNCT. LS COARSE/ MOIST W/ OCCASIONAL MOIST COUGH & COPIOUS AMNTS THICK WHITE SPUTUM SUCTIONED THROUGH ETT. VENT SETTINGS: AC/VC 28/320/5/30% W/ O2 SATS > 95%. CHEST TUBE IN PLACE TO RIGHT POSTERIOR CHEST WALL, PLACED TO WATER SEAL W/ SS DRAINAGE NOTED IN COLLECTION DEVICE. INSERTION SITE WNL; CHG DRESSING IN PLACE W/ NO CREPITUS OR LEAKING NOTED AROUND SITE. MONITOR SHOWS SB-SR W/ HR 50-60s, BP STABLE. OGT IN PLACE W/ VHP INFUSING AT GOAL RATE OF 55 ML/HR, NO S/SX INTOLERANCE NOTED. RECTAL TUBE PATENT/ DRAINING BROWN LIQUID STLS. TEMP STEINER PATENT/ DRAINING YELLOW URINE - IN PLACE FOR STRICT I&O MONITORING. SKIN CONDITION OVERALL INTACT, Q2H REPOSITIONING TO MAINTAIN SKIN INTEGRITY. WILL CONTINUE TO MONITOR & REPORT OFF TO ONCOMING RN.
[2024-01-15] MEDS ORDERED: MethylPREDNISolone Sod Succ 40 MG VIAL IV SCH (21:00)
--- NOTE | 2024-01-15 22:39 | NUR ---
ASSUMED CARE ASSUMED CARE AT 1900. INTUBATED AND SEDATED. PROPOFOL, AND VERSED GTT INFUSING. PT AWAKE, HITTING BED RAIL WITH HAND. MOTIONING FOR CLIPBOARD AND PEN. ATTEMPTED TO WRITE MESSAGE BUT THIS RN UNABLE TO READ. PT DID SQUEEZE HANDS AND MOVES TOES ON COMMAND. WHEN ASKED TO LIFE ARMS, OR OTHER TASKS, PT SHAKES HEAD NO AND "FLIPS OFF" STAFF. PT ATTEMPTING TO HIT STAFF DURING TURNS, SUCTIONING, AND MEDICATION ADMINISTRATION. RR 40'S, SBP 140-150'S. FENTANYL AND PRN ZYPREXA GIVEN. DISCUSSED WITH DR BLEDSOE AND WILL START PRECEDEX AND CONTINUE TO TRY AND TITRATE VERSED GTT DOWN. OTHER VSS. SR RATE 70'S. OGT W/ TF AT GOAL. CHEST TUBE TO WATER SEAL ON RIGHT. STEINER PATENT AND DRAINING TO GRAVITY. RECTAL TUBE IN PLACE.
[2024-01-16] VITALS (38 sets, daily range): BP systolic 134–187; BP diastolic 75–119
[2024-01-16 04:14] LABS: BASOPHILS ABSOLUTE AUTO 0.03 K/mm3 (0.00-0.23); BASOPHILS PERCENT AUTO 0 % (0-2); EOSINOPHILS ABSOLUTE AUTO 0.36 K/mm3 (0.00-0.68); EOSINOPHILS PERCENT AUTO 3 % (0-6); Hematocrit 30.7 % (37.0-53.0); Hemoglobin 9.8 g/dL (13.5-17.5); IMMATURE GRAN ABSOLUTE AUTO 0.05 K/mm3 (0.00-0.10); IMMATURE GRAN PERCENT AUTO 1 % (0-1); LYMPHOCYTES ABSOLUTE AUTO 0.74 K/mm3 (0.84-5.20); LYMPHOCYTES PERCENT AUTO 7 % (21-46); MONOCYTES ABSOLUTE AUTO 0.75 K/mm3 (0.16-1.47); MONOCYTES PERCENT AUTO 7 % (4-13); Mean Corpuscular HGB 31.1 pg (26.0-34.0); Mean Corpuscular HGB Conc 31.9 g/dL (31.5-36.5); Mean Corpuscular Volume 98 fL (80-100); Mean Platelet Volume 9.2 fL (9.1-12.4); NEUTROPHILS PERCENT AUTO 82 % (41-73); Platelet Count 369 K/mm3 (150-400); RDW Coefficient Variation 12.5 % (11.7-14.2); RDW Standard Deviation 44.5 fL (35.1-46.3); Red Blood Cell Count 3.15 M/mm3 (4.30-5.90); White Blood Cell Count 10.73 K/mm3 (4.00-11.30)
[2024-01-16 04:30] LABS: Bun/Creatinine Ratio 24.2 (12.0-20.0); Creatinine, Blood 0.74 mg/dL (0.60-1.20); Phosphorus, Blood 3.9 mg/dL (2.5-4.9); Potassium, Blood 4.2 mmol/L (3.5-5.5)
--- NOTE | 2024-01-16 06:22 | NUR ---
SHIFT SUMMARY NO ACUTE EVENTS T/O NIGHT. PT PLACED IN RESTRAINTS AT 2330. PT THROWING PILLOWS ON GROUND, TAKING OFF SPO2 PROBE, RESTING HANDS ON ETT AND NOT EASILY DIRECTABLE. PRECEDEX, VERSED, AND PROPOFOL GTT INFUSING. SEE FLOWSHEET FOR TITRATIONS. VSS. SR RATE 60-80'S. OGT W/ TF AT GOAL. STEINER PATENT AND DRAINING TO GRAVITY. RECTAL TUBE IN PLACE. WILL REPORT OFF TO ONCOMING RN.
--- NOTE | 2024-01-16 07:30 | NUR ---
ASSUMED CARE: REPORT RECEIVED FROM JUS ADLER. ASSUMED CARE OF THIS PT AT APPROX 0700. ON ASSESSMENT, THE PT IS AWAKE, ORIENTED TO SELF & EASILY AGITATED. BILAT SOFT WRIST RESTRAINTS IN PLACE & WHEN TRIALED OFF, PT REACHES FOR ETT & PUSHES STAFF HANDS AWAY WHILE TRYING TO COMPLETE CARE MEASURES. HE HAS ATTEMPTED TO WRITE ON CLIPBOARD FOR COMMUNICATION BUT HANDWRITING/ SPELLING DIFFICULTIES LIMIT THIS METHOD. LS ARE COARSE T/O, DIM IN BASES. VENT SETTINGS: AC/VC 28/320/5/30% W/ O2 SATS > 92%. CHEST TUBE TO RIGHT POSTERIOR CHEST WALL W/ SS DRAINAGE NOTED, DRESSING REMAINS CDI W/ NO CREPITUS NOTED AROUND INSERTION SITE ON PALPATION. MONITOR SHOWS SB-SR W/ HR 40-60s, BP STABLE. OGT IN PLACE W/ VHP INFUSING AT GOAL RATE OF 55 ML/HR, NO S/SX INTOLERANCE NOTED. RECTAL TUBE PATENT/ DRAINING BROWN LIQUID STLS. TEMP STEINER PATENT/ DRAINING CLEAR YELLOW URINE - IN PLACE FOR STRICT I&O MONITORING. SKIN CONDITION OVERALL INTACT, Q2H REPOSITIONING TO MAINTAIN SKIN INTEGRITY. WILL CONTINUE TO MONITOR & UPDATE NEEDED.
--- NOTE | 2024-01-16 09:12 | NUR ---
ASKED PT IF IT WAS OKAY FOR GENERAL CLERK TO HELP PERFORM CARE - PT NODDED YES
--- NOTE | 2024-01-16 09:50 | NUR ---
DR BLEDSOE: PROVIDER AT BEDSIDE THIS AM TO EVAL PT. HE HAS PLACED THE VENT ON SPONTANEOUS SETTINGS W/ PS 5, PEEP 5 & 30% FIO2. THE PT IS TOLERATING THIS WELL INTERMITTENTLY. WHEN ANXIOUS OR IRRITATED, THE PT's RR INCREASES TO 40s & TVs < 300. HE RESPONDS WELL TO VERBAL REASSURACE FROM & IS ABLE TO SLOW RR & BEGIN TO CALM. DISCUSSED LARGE AMNT OF THICK TENACIOUS SECRETIONS SUCTIONED THROUGH ETT & INCREASINGLY MOIST LUNG SOUNDS SINCE THIS AM. THE PLAN IS FOR THE PT TO BE ON SPONTANEOUS SETTINGS LONG HE CAN TOLERATE BUT EXTUBATION IS UNLIKELY RELATED TO SECRETIONS & ANXIETY AT THIS TIME. GOAL IS TO TITRATE PRECEDEX UP NEEDED FOR ANXIETY MANAGEMENT WHILE TITRATING PROPOFOL DOWN. NO OTHER CHANGES AT THIS TIME.
[2024-01-16] MEDS ORDERED: AmLODIPine Besylate 5 MG Tab PT SCH (15:15)
--- NOTE | 2024-01-16 19:13 | NUR ---
SHIFT SUMMARY: THE PT HAS CONTINUED TO IMPROVE THIS EVENING. HE IS BEING FULLY COOPERATIVE W/ CARE MEASURES AT THIS POINT & HAS BEEN UNRESTRAINED SINCE 1400 W/ NO ATTEMPTS TO PULL AT LINES OR TUBES. LS ARE COARSE, DIM & OCCASIONALLY MOIST WHEN NEEDING SUCTIONED. VENT SETTINGS: AC/VC 28/320/5/30% W/ O2 SATS > 92%. MOD AMNTS THICK TENACIOUS WHITE-CLEAR SPUTUM SUCTIONED THROUGH ETT. MONITOR SHOWS SR W/ HR 60s, BP REMAINS ELEVATED WHEN AWAKE & MOVING AROUND, NORVASC STARTED THIS EVENING PER DR BLEDSOE W/ SOME IMPROVEMENT NOTED. OGT IN PLACE W/ TUBE FEEDS INFUSING AT GOAL RATE W/ NO S/SX INTOLERANCE. RECTAL TUBE DRAINING BROWN LIQUID STLS. TEMP STEINER PATENT/ DRAINING CLEAR YELLOW URINE. SKIN CONDITION OVERALL INTACT, Q2H REPOSITIONING TO MAINTAIN SKIN INTEGRITY. WILL CONTINUE TO MONITOR & REPORT OFF TO ONCOMING RN.
--- NOTE | 2024-01-16 22:26 | NUR ---
ASSUMED CARE ASSUMED CARE AT 1900. PT INTUBATED AND SEDATED. AC/VC 28/320/5/30% RR 28-45. PROPOFOL AND PRECEDEX GTT INFUSING. RASS 0. SEE FLOWSHEET FOR RATE AND TITRATIONS. PT ALERT, COMMUNICATING WELL WITH PEN/PAPER AND GESTURES. FOLLOWS COMMANDS AND MOVES ALL EXTREMITIES. HTN AT TIMES. FEBRILE, BLANKETS TAKEN OFF AND FAN ON PT. OTHER VSS. SR/SB 50-60'S. CHEST TUBE TO R POSTERIOR CHEST WALL. OGT W/ TF AT GOAL. STEINER PATENT AND DRAINING TO GRAVITY. RECTAL TUBE IN PLACE. CALL LIGHT IN REACH. AT BEDSIDE.
[2024-01-17] VITALS (47 sets, daily range): BP systolic 102–162; BP diastolic 65–101
--- NOTE | 2024-01-17 00:55 | NUR ---
UPDATE PT SITTING UP TO THE POINT OF HEAD OVER KNEES STRETCHING ETT AND CHEST TUBE, PULLING GOWN OFF, AND THEN PT WRITING "I CAN'T BREATHE". PT COARSE T/O. SPO2 GREATER THEN 92%. RR 40'S. ETT SUCTIONED, WITH SMALL AMOUNT OF THICK WHITE. PRECEDEX TITRATED UP, CHEST TUBE APPEARS IN PLACE AND RE TAPED DOWN. WITH THERAPEUTIC COMMUNICATION AND REPOSITIONING PT NOW RESTING QUIETLY. REMAINS AT BEDSIDE.
[2024-01-17 05:38] LABS: BASOPHILS ABSOLUTE AUTO 0.07 K/mm3 (0.00-0.23); BASOPHILS PERCENT AUTO 1 % (0-2); EOSINOPHILS ABSOLUTE AUTO 0.82 K/mm3 (0.00-0.68); EOSINOPHILS PERCENT AUTO 7 % (0-6); Hematocrit 33.7 % (37.0-53.0); IMMATURE GRAN ABSOLUTE AUTO 0.07 K/mm3 (0.00-0.10); IMMATURE GRAN PERCENT AUTO 1 % (0-1); LYMPHOCYTES ABSOLUTE AUTO 0.91 K/mm3 (0.84-5.20); LYMPHOCYTES PERCENT AUTO 7 % (21-46); MONOCYTES ABSOLUTE AUTO 0.84 K/mm3 (0.16-1.47); MONOCYTES PERCENT AUTO 7 % (4-13); Mean Corpuscular HGB 31.3 pg (26.0-34.0); Mean Corpuscular HGB Conc 32.6 g/dL (31.5-36.5); Mean Corpuscular Volume 96 fL (80-100); Mean Platelet Volume 9.1 fL (9.1-12.4); NEUTROPHILS ABSOLUTE AUTO 9.69 K/mm3 (1.96-9.15); NEUTROPHILS PERCENT AUTO 78 % (41-73); Platelet Count 387 K/mm3 (150-400); RDW Coefficient Variation 12.5 % (11.7-14.2); RDW Standard Deviation 43.6 fL (35.1-46.3); Red Blood Cell Count 3.52 M/mm3 (4.30-5.90)
[2024-01-17] MEDS ORDERED: Lansoprazole 15 MG TAB.RAP.DR PT SCH (06:00)
--- NOTE | 2024-01-17 06:16 | NUR ---
SHIFT SUMMARY NO ACUTE EVENTS T/O NIGHT. NO VENT SETTINGS CHANGES. PRECEDEX AND PROPOFOL GTT REMAIN INFUSING. PT REMAINS ALERT AND COOPERATIVE T/O NIGHT. ABLE TO SLEEP STARTING APPROX 0200. VSS. SR/SB 50-70'S. T-MAX 100.6. OGT WITH TF AT GOAL. STEINER PATENT AND DRAINING TO GRAVITY. CHEST TUBE TO R POSTERIOR CHEST WALL. RECTAL TUBE IN PLACE. AT BEDSIDE T/O NIGHT. WILL REPORT OFF TO DAY RN.
[2024-01-17 06:22] LABS: Albumin/Globulin Ratio 0.5 (0.8-1.8); Bilirubin, Total 0.2 mg/dL (0.1-1.0); Bun/Creatinine Ratio 27.9 (12.0-20.0); Calcium, Blood 8.9 mg/dL (8.5-10.1); Creatinine, Blood 0.68 mg/dL (0.60-1.20); Globulin, Blood 4.1 g/dL (2.2-4.0); Magnesium, Blood 2.1 mg/dL (1.6-2.4); Phosphorus, Blood 3.9 mg/dL (2.5-4.9); Potassium, Blood 3.8 mmol/L (3.5-5.5); Total Protein, Blood 6.1 g/dL (6.4-8.2)
[2024-01-17] MEDS ORDERED: Folic Acid 1 MG TAB PT SCH (09:00)
[2024-01-17] MEDS ORDERED: Thiamine HCl 100 MG Tab PT SCH (09:00)
--- NOTE | 2024-01-17 11:02 | NUR ---
CARE ASSUMPTION/EXTUBATION DURING BEDSIDER SHIFT REPORT Radha ROTH RN THE PT IS LYING INBED INTUBATED AND SEDATED. VEMNT SETTING ARE AC/VC 28/320/5.0 W 30% FIO2. PT ON PROPOFOL AND PRECEDEX GTT'S, SEE FLOWSHEET FOR DETAILS. TP'S MONITOR SHOWING SB 50'S. BP WNL AND STABLE. PT HAS CT IN PLACE TO R POSTERIOR CHEST TUBE IN PLACE DRAINING INTO [employer] COLLECTION DEVICE. PT'S SPOUSE ASLEEP AT BEDSIDE. EXTUBATION PT EXTUBATED PER RT AT 1057 AND PLACED ON 6L NC. PT COUGHING UP LARGE AMOUNTS OF WHITE SECRETIONS. RESP ARE EVEN AND FAIRLY UNLABORED. DR. BLEDSOE AT BS ASSESSING PT POST EXTUBATION.
--- NOTE | 2024-01-17 14:42 | NUR ---
SWALLOW EVAL PT GIVEN TAMPA BEDSIDE SWALLOW EVAL BY THIS RN. UPON DRINKING 3 OZ WATER THE PT BEGAN COUGHING AGGRESSIVELY. SWALLOW EVAL DOCUMENTED FAILED. DR. BLEDSOE NOTIFIED OF THIS EVENT AND FORMAL SPEECH THERAPY EVALUATION ORDERED.
[2024-01-17] MEDS ORDERED: Lidocaine 2% Jelly Uro-Jet UR ONE (16:30)
--- NOTE | 2024-01-17 17:42 | NUR ---
DAY SHIFT SUMMARY PT BEGAN THIS SHIFT INTUBATED ON THE VENTILATOR BUT WAS EXTUBATED AT 1057 THIS AM. PT MAINTAINING SPO2 >92% ON 3-6L OXY-MASK THIS SHIFT. PT ABLE TO COUGH AND EXPELL VERY LARGE AMOUNTS OF THICK WHITE SECRETIONS POST EXTUBATION AND HAS HAD MINIMAL SECRETIONS THROUGHOUT THE DAY. PT HAS MAINTAINED ALERT AND ORIENTED THIS SHIFT W MODERATE ANXIETY ON PRECEDEX GTT. PT UP IN THE RECLINER FOR MOST OF THE DAY POST EXTUBATION TOLERATING THAT WELL. PT TRANSFERING SELF TO RECLINER FROM THE BED USING FWW AND GAIT BELT, O2 TURNED UP TO 15L PROPHYLACTICALLY DURING AMBULATION. PT HAD STEINER CATHETER AND RECTAL TUBE REMOVED THIS SHIFT. PT UNABLE TO VOID THIS SHIFT AND AFTER MULTIPLE ATTEMPTS TO VOID AND BLADDER SCAN >450 OT WAS STRAIGHT CATHED X1 REMOVING 450ML CLEAR YELLOW URINE. PT DID NOT HAVE A BM THIS SHIFT. PT GIVEN BEDSIDE SWALLOW EVALUATION THIS SHIFT TO WHICH HE INSTANTLY BEGAN COUGHING AGGRESSIVELY AFTER DRINKING THE WATER, ST EVAL ORDERED BY DR. BLEDSOE AND PT TO REMAIN NPO UNTIL EVAL. PT'S CT PATENT AND DRAINED 210ML CLEAR YELLOW FLUID THIS SHIFT. PT'S MONITOR SHOWING SB/SR 50'S-60'S THIS SHIFT. BP WNL AND STABLE. PT AFEBRILE THIS SHIFT. PT HAS BEEN PLEASANT AND COOPERATIVE WITH CARE THIS SHIFT. PT CURRENTLY SITTING BACK IN BED ON 4L OXY-MASK W FAMILY AT BEDSIDE. PRECEDEX GTT INFUSING W TKO NS, SEE FLOWSHEET FOR DETAILS. PT HAD CHG BATH THIS SHIFT. PT'S CL DRESSING CHANGED THIS SHIFT. WILL REPORT TO ONCOMING RN.
--- NOTE | 2024-01-17 20:48 | NUR ---
ASSUME CARE PT RESTING IN BED DURING BSSR WITH AT BEDSIDE. PT WEARING OXY MASK WITH O2 AT 6L. QUAD LUMEN IJ IN PLACE WITH PRECEDEX AND ANTIBIOTIC INFUSING. PT AND ENDORSE PT VOICE BEING QUIETER AND WEAKER THAN NORMAL. PT EDUCATED ON O2 TITRATION, O2 WAS TURNED DOWN TO 4L AFTER PATIENT USED INCENTIVE SPIROMETER AND COUGHING UP PHLEGM, RN AND RT IS TO MAKE CHANGES TO O2 DUE TO PT SAFETY AND CONTINUITY OF CARE/COMMUNICATION. PT STATES UNDERSTANDING. PT ALERT AND PLEASANT, HAS NO C/O OF PAIN AT THIS TIME. UPDATED PT AND ON PLAN FOR BLADDER MANAGEMENT IF PT UNABLE TO URINATE, PLANS TO BLADDER SCAN BY MIDNIGHT IF UNABLE TO URINATE BEFORE THEN. DISCUSSED WITH PT PLANS FOR SWALLOW EVALUATION TOMORROW D/T DIFFICULTY PASSING BEDSIDE SWALLOW EVAL AT THIS TIME. PT CHEST TUBE PATENT AND DRESSING CDI AT CHANGE OF SHIFT, SEROUS OUTPUT IN TUBE AT THIS TIME. AT 2100 PT SWITCHED FROM OXY MASK TO NC FOR COMFORT PER PATIENT REQUEST.
[2024-01-18] VITALS (43 sets, daily range): BP systolic 92–176; BP diastolic 67–120
[2024-01-18 04:13] LABS: BASOPHILS ABSOLUTE AUTO 0.04 K/mm3 (0.00-0.23); BASOPHILS PERCENT AUTO 0 % (0-2); EOSINOPHILS ABSOLUTE AUTO 0.24 K/mm3 (0.00-0.68); EOSINOPHILS PERCENT AUTO 2 % (0-6); Hematocrit 36.9 % (37.0-53.0); Hemoglobin 11.8 g/dL (13.5-17.5); IMMATURE GRAN ABSOLUTE AUTO 0.08 K/mm3 (0.00-0.10); IMMATURE GRAN PERCENT AUTO 1 % (0-1); LYMPHOCYTES ABSOLUTE AUTO 0.72 K/mm3 (0.84-5.20); LYMPHOCYTES PERCENT AUTO 5 % (21-46); MONOCYTES ABSOLUTE AUTO 0.85 K/mm3 (0.16-1.47); MONOCYTES PERCENT AUTO 6 % (4-13); Mean Corpuscular HGB 30.6 pg (26.0-34.0); Mean Corpuscular Volume 96 fL (80-100); Mean Platelet Volume 9.3 fL (9.1-12.4); NEUTROPHILS ABSOLUTE AUTO 12.08 K/mm3 (1.96-9.15); NEUTROPHILS PERCENT AUTO 86 % (41-73); Platelet Count 429 K/mm3 (150-400); RDW Coefficient Variation 12.5 % (11.7-14.2); RDW Standard Deviation 43.9 fL (35.1-46.3); Red Blood Cell Count 3.85 M/mm3 (4.30-5.90); White Blood Cell Count 14.01 K/mm3 (4.00-11.30)
[2024-01-18 04:38] LABS: Bun/Creatinine Ratio 29.9 (12.0-20.0); Creatinine, Blood 0.77 mg/dL (0.60-1.20); Magnesium, Blood 2.1 mg/dL (1.6-2.4); Phosphorus, Blood 4.1 mg/dL (2.5-4.9); Potassium, Blood 3.9 mmol/L (3.5-5.5)
--- NOTE | 2024-01-18 06:09 | NUR ---
SHIFT SUMMARY PT REMAINED ON PRECEDEX OVERNIGHT WITH LITTLE ANXIETY OR AGITATION. PT DOES CONTINUE TO DESAT RAPIDLY WHEN O2 IS NOT ON OR WHEN ADJUSTING POSITION. PT ABLE TO USE URINAL TWICE OVERNIGHT, BUT DID TAKE ABOUT 15 MINUTES TO RECOVER BREATHING AND O2 AFTER SITTING ON SIDE OF BED. PT COUGHED UP A LARGE QUANTITY OF THICK PHLEGM OVERNIGHT, VERY TENACIOUS AND DIFFICULT FOR PT TO CLEAR. QUAD LUMEN IJ REMAINS IN PLACE WITH PRECEDEX AND NS RUNNING. PT DID COMPLAIN OF PAIN WHERE CHEST TUBE INSERTION SITE IS LOCATED. SEE EMAR FOR GIVEN MEDICTIONS. PT ABLE TO REPOSITION SELF IN BED TO COMFORT/ TOLERATED. PT DID STAND NEXT TO BED AND PIVOT TO SIT IN CHAIR THIS MORNING WITH STANDBY ASSIST AND USE OF THE WALKER. PT REMAINED AT BEDSIDE OVERNIGHT AND DID SEEM TO BE HELPFUL WITH PT MANAGING ANXIETY. LINEN CHANGE COMPLETED FOR PT BED OVERNIGHT. CHEST TUBE HAS 70ML OUTPUT OVERNIGHT, SEROUS IN COLOR, MARKED ON CHAMBER.
--- NOTE | 2024-01-18 07:15 | NUR ---
ASSUMPTION OF CARE: ASSUMED CARE OF PATIENT. PATIENT RESTING QUIETLY IN BED. PATIENT ON 7L VIA OXYMASK. PATIENT RR IN THE 30S. PATIENT REPORTS HIS BREATHING FEELS FINE NOW. PATIENT MOVING LIMBS INDEPENDENTLY. PRECEDEX INFUSING AT 1.4 MCG/KG/HR. TKO INFUSING AT 10ML/HR. CHEST TUBE IN PLACE. SEROUS DRAINAGE NOTED IN TUBING. DRESSING IS C/D/I. CHEST TUBE SUTURED INTO PLACE. PATIENT DENIES NEEDS AT THIS TIME.
--- NOTE | 2024-01-18 08:35 | NUR ---
MORNING OXYGEN STATUS: THIS MORNING AROUND 07:30, NIGHT RN NOTIFIED THIS RN THAT SHE NEEDED TO INCREASE HIS OXYGEN TO 10L TO KEEP HIS SPO2 >90%. PATIENT REPORTED SOME SOB RELATED TO HIM MOVING BLANKETS OFF OF HIS LEGS. DISCUSSED WITH RT. ENCOURAGED PATIENT TO RECOVER. ONCE PATIENT FELT RECOVERED, HE SAT AT THE BEDSIDE TO URINATE. SPO2 DROPPED INTO THE HIGH 70S. PATIENT BACK IN BED AND RESTING. RT AT BEDSIDE AND PLACED ON HUMIDIFIED HIGH FLOW. PATIENT AT 50 L/ 79% FIO2. PATIENT IMPROVED GREATLY. SPO2 >96%. RR IN THE 20S. PATIENT ABLE TO ANSWER QUESTIONS IN FULL SENTENCES.
[2024-01-18 08:37] LABS: Vancomycin, Trough 17.5 ug/mL (5.0-10.0)
[2024-01-18] MEDS ORDERED: OxyCODONE HCL 5 MG TAB PO PRN (09:35)
--- NOTE | 2024-01-18 18:59 | NUR ---
SHIFT SUMMARY: NEURO: PATIENT ALERT AND ORIENTED X4 THROUGHOUT THE SHIFT. PATIENT IS ABLE TO REMEMBER HIS TIME WHILE INTUBATED. PATIENT HAD SOME ANXIETY THIS MORNING WHEN DISCUSSING WITH DR. BLEDSOE THAT HE WILL LIKELY HAVE 5 OR SO MORE DAYS IN THE HOSPITAL. SOME ANXIETY NOTED WITH SHORTNESS OF BREATH DURING THE DAY. PATIENT UTILIZING RELAXATION TECHNIQUES. PRECEDEX GTT ON STANDBY. DISCUSSED CENTRAL LINE REMOVAL WITH DR. BLEDSOE TODAY. HE REQUESTED THAT IT BE LEFT IN PLACE FOR ANOTHER DAY. RESPIRATORY: SEE NURSE'S NOTE ABOUT TRANSITION TO HUMIDIFIED HIGH FLOW THIS MORNING. PATIENT ABLE TO SUCCESSFULLY WEEN DOWN TO 50% FIO2 DURING THE DAY. SHORTNESS OF BREATH WITH EXERTION, REQUIRING BRIEF INCREASES IN FIO2. PATIENT UP TO THE CHAIR AND BEDSIDE COMMODE X2 DURING THE DAY. BY THE AFTERNOON, WE UTILIZED THE BED AGUILAR HIS RECOVERY FROM EXERTION WAS INCREASING IN LENGTH. SPO2>90% THROUGHOUT THE SHIFT. RR IN THE 20-30S. CARDIAC: HR IN THE 80S-90S. SOME SINUS TACH WITH PAIN AND EXERTION. BLOOD PRESSURE STABLE WITH SBP IN THE 110S-150S. MAPS >65. PATIENT DENIES CHEST PAIN OR DISCOMFORT. GI/: PATIENT ADVANCED TO PUREED DIET. PATIENT SWALLOWED WITHOUT DIFFICULTY. PATIENT HAS A MINIMAL APPETITE AND WAS HAVING DIFFICULTY FINDING FOODS THAT TASTED GOOD. PATIENT VOIDING WITHOUT DIFFICULTY. PATIENT HAVE LIQUID DARK GREEN/BROWN STOOLS. PATIENT CONTINENT OF BOTH. PSYCHSOCIAL: MINIMAL ANXIETY DURING THE SHIFT NOTED. PATIENT'S LIBERTAD AT BEDSIDE. SHE IS SUPPORTIVE OF THE PATIENT AND A CALMING PRESENCE.
--- NOTE | 2024-01-18 19:49 | NUR ---
ASSUMED CARE OF PT AT 1900. REPORT RECEIVED AT BEDSIDE. PT PRESENTS IN BED. SITTING UPRIGHT. HAS CHEST TUBE TO 20 CM WALL SUCTION. PT HAS BEEN PREVIOUSLY MEDICATED WITH FENTANYL 50 MCG'S. PT STATES THAT THIS HAS MADE HIM FEEL "FRUITLOOPS" WILL MEDICATE PT WITH OXYCODONE BEFORE HIS PAIN ELEVATES TO THE LEVEL REQUIRING FENTANYL. PT VERBALIZES AGREEMENT TO THIS PLANNING. WILL REVIEW CHART AND PLAN OF CARE FOR THIS PT.
[2024-01-18] MEDS ORDERED: Gabapentin 100 MG Cap PO SCH (20:00)
[2024-01-18] MEDS ORDERED: Magnesium Hydroxide Conc 10 ML UDC PO PRN (20:05)
[2024-01-18] MEDS ORDERED: Acetaminophen 160MG / 5ML 10.15 UDC PO PRN (20:10)
[2024-01-18] MEDS ORDERED: Acetaminophen 325 MG TABLET PO PRN (20:15)
[2024-01-18] MEDS ORDERED: OLANZapine 10 MG Tab PO SCH (21:00)
[2024-01-19] VITALS (32 sets, daily range): BP systolic 95–192; BP diastolic 75–143
--- NOTE | 2024-01-19 02:09 | NUR ---
CALL MADE TO DR BLEDSOE SECONDARY TO PT'S TEMPERATURE ELEVATING. ORDER FOR BLOOD CULTURES RECEIVED AND HAS BEEN DRAWN. HAVE CHANGED OUT PLEARALVAC. PT HAS HAD OUTPUT FROM CHEST TUBE SEROUS FLUID. CHEST TUBE REMAINS TO 20 CM. PT HAS VOIDED Q.S. HAS HAD LARGE BM THIS NIGHT WELL. HAS CALLED HIS SEVERAL TIMES THIS NIGHT. HAS USED CALL LIGHT SYSTEM FREQUENTLY. HAS BEEN MODERATELY ANXIOUS THIS NIGHT. WILL CONTINUE TO MONITOR.
[2024-01-19 04:55] LABS: BASOPHILS ABSOLUTE AUTO 0.06 K/mm3 (0.00-0.23); BASOPHILS PERCENT AUTO 0 % (0-2); EOSINOPHILS ABSOLUTE AUTO 0.07 K/mm3 (0.00-0.68); EOSINOPHILS PERCENT AUTO 1 % (0-6); Hematocrit 37.8 % (37.0-53.0); Hemoglobin 12.2 g/dL (13.5-17.5); IMMATURE GRAN ABSOLUTE AUTO 0.11 K/mm3 (0.00-0.10); IMMATURE GRAN PERCENT AUTO 1 % (0-1); LYMPHOCYTES ABSOLUTE AUTO 0.74 K/mm3 (0.84-5.20); LYMPHOCYTES PERCENT AUTO 5 % (21-46); MONOCYTES ABSOLUTE AUTO 0.78 K/mm3 (0.16-1.47); MONOCYTES PERCENT AUTO 5 % (4-13); Mean Corpuscular HGB 30.9 pg (26.0-34.0); Mean Corpuscular HGB Conc 32.3 g/dL (31.5-36.5); Mean Corpuscular Volume 96 fL (80-100); Mean Platelet Volume 9.2 fL (9.1-12.4); NEUTROPHILS ABSOLUTE AUTO 13.32 K/mm3 (1.96-9.15); NEUTROPHILS PERCENT AUTO 88 % (41-73); Platelet Count 453 K/mm3 (150-400); RDW Coefficient Variation 12.8 % (11.7-14.2); RDW Standard Deviation 45.1 fL (35.1-46.3); Red Blood Cell Count 3.95 M/mm3 (4.30-5.90); White Blood Cell Count 15.08 K/mm3 (4.00-11.30)
[2024-01-19 05:28] LABS: Bun/Creatinine Ratio 22.2 (12.0-20.0); Calcium, Blood 8.9 mg/dL (8.5-10.1); Creatinine, Blood 0.77 mg/dL (0.60-1.20); Potassium, Blood 3.9 mmol/L (3.5-5.5)
--- NOTE | 2024-01-19 05:33 | NUR ---
PT HAS NOT BEEN ABLE TO SLEEP THIS NIGHT. HAS CALLED HIS AT HOME SEVERAL TIMES TONIGHT BECAUSE HE WAS NOT ABLE TO SLEEP. FREQUENTLY USING CALL LIGHT FOR MULTIPLE TASKS AND NEEDS. CHEST TUBE CONTINUES TO LWS AT 20 CM SUCTION. SEROUS DRAINAGE. PT CONTINUES WITH AIRVO AT 50 L/M WITH 50 PERCENT FIO2. WILL CONTNUE TO MONITOR PT, AND WILL REPORT OFF TO ONCOMING RN.
[2024-01-19] MEDS ORDERED: Lansoprazole 15 MG TAB.RAP.DR PO SCH (06:00)
[2024-01-19] MEDS ORDERED: AmLODIPine Besylate 5 MG Tab PO SCH (09:00)
[2024-01-19] MEDS ORDERED: Folic Acid 1 MG TAB PO SCH (09:00)
[2024-01-19] MEDS ORDERED: Thiamine HCl 100 MG Tab PO SCH (09:00)
[2024-01-19] MEDS ORDERED: TraZODone HCl 50 MG Tab PO PRN (11:45)
[2024-01-19] MEDS ORDERED: LORazepam Conc 2 MG/ML - 1ML UDC PO PRN (11:45)
--- NOTE | 2024-01-19 12:00 | NUR ---
CHEST TUBE DR ORTEGA AT BEDSIDE TO UPDATE PT AND SPOUSE ON PLAN OF CARE. CHEST TUBE PLACED TO WATER SEAL AT THIS TIME. CT CONTINUES WITH PINK/SEROUS OUTPUT NOTED. PT STOOD UP TO PIVIOT TO RECLINER CHAIR AT THIS TIME. PT WITH SEVERE DYSPNEA WITH EXERTION AND SPO2 DROPPED TO 79%. PT RECOVERED AND REMAINS ON AIRVO. WILL CONTINUE TO MONITOR.
[2024-01-19] MEDS ORDERED: LORazepam 0.5 MG Tab PO PRN (12:40)
--- NOTE | 2024-01-19 17:29 | NUR ---
SHIFT SUMMARY NO ACUTE CHANGES THIS SHIFT. PT HAS REMAINED AWAKE, ALERT, AND ORIENTED THIS SHIFT. PT REMAINS ON AIRVO AT 50L, FIO2 50%. AIRVO TITRATED DOWN THIS AM, THEN PT WITH EPISODE OF RESPIRATORY DISTRESS WHEN UP TO RECLINER CHAIR AND HAS SINCE REMAIND AT 50% FIO2. PT UP TO SIDE OF BED TO USE URINAL MULTIPLE TIMES THIS SHIFT. PT WORKED WITH PHYSICAL THERAPY THIS AFTERNOON. PG PLACED TO KIERAN, NS INFUSING TKO. CENTRAL LINE TO RIJ DC'D THIS SHIFT. DRESSING C/D/I. RIGHT POSTERIOR CHEST TUBE REMAINS TO WATER SEAL WITH LIGHT PINK/YELLOW OUTPUT NOTED. NO AIRLEAK OR BUBBLES NOTED. PT WITH POOR APPETITE, BUT TAKING PO INTAKE WELL. PT SPOUSE AT BEDSIDE MOST OF THIS SHIFT. VITAL SIGNS STABLE. WILL CONTINUE TO MONITOR AND REPORT OFF TO ONCOMING RN.
--- NOTE | 2024-01-19 19:00 | NUR ---
ASSUMED CARE OF PATIENT AT 1900. REPORT RECEIVED FROM JUS BONILLA. PT RESTING IN BED, AND SON AT BEDSIDE. VSS, NO ACUTE NEEDS IDENTIFED AT THIS TIME. AIRVO AT 50L, FiO2 50%. CENTRAL LINE REMOVED 01/19/24 AM - DRESSING REMAINS C/D/I. CHEST TUBE TO R POSTERIOR TO WATER SEAL WITH PINK/YELLOW DRAINAGE. SEE SHIFT ASSESSMENT FOR FULL DETAILS.
[2024-01-19] MEDS ORDERED: NS 100 ML IV ONE (23:31)
[2024-01-20] VITALS (22 sets, daily range): BP systolic 109–187; BP diastolic 61–108
[2024-01-20 03:29] LABS: BASOPHILS ABSOLUTE AUTO 0.04 K/mm3 (0.00-0.23); BASOPHILS PERCENT AUTO 0 % (0-2); EOSINOPHILS PERCENT AUTO 1 % (0-6); Hemoglobin 11.3 g/dL (13.5-17.5); IMMATURE GRAN ABSOLUTE AUTO 0.09 K/mm3 (0.00-0.10); IMMATURE GRAN PERCENT AUTO 1 % (0-1); LYMPHOCYTES ABSOLUTE AUTO 0.64 K/mm3 (0.84-5.20); LYMPHOCYTES PERCENT AUTO 5 % (21-46); MONOCYTES ABSOLUTE AUTO 0.82 K/mm3 (0.16-1.47); MONOCYTES PERCENT AUTO 6 % (4-13); Mean Corpuscular HGB Conc 32.3 g/dL (31.5-36.5); Mean Corpuscular Volume 96 fL (80-100); Mean Platelet Volume 9.3 fL (9.1-12.4); NEUTROPHILS ABSOLUTE AUTO 12.41 K/mm3 (1.96-9.15); NEUTROPHILS PERCENT AUTO 88 % (41-73); Platelet Count 404 K/mm3 (150-400); RDW Coefficient Variation 12.8 % (11.7-14.2); RDW Standard Deviation 44.7 fL (35.1-46.3); Red Blood Cell Count 3.65 M/mm3 (4.30-5.90)
[2024-01-20 03:48] LABS: Albumin, Blood 2.2 g/dL (3.4-5.0); Albumin/Globulin Ratio 0.5 (0.8-1.8); Bilirubin, Total 0.3 mg/dL (0.1-1.0); Bun/Creatinine Ratio 20.6 (12.0-20.0); Calcium, Blood 8.7 mg/dL (8.5-10.1); Creatinine, Blood 0.78 mg/dL (0.60-1.20); Globulin, Blood 4.1 g/dL (2.2-4.0); Total Protein, Blood 6.3 g/dL (6.4-8.2)
--- NOTE | 2024-01-20 05:34 | NUR ---
SHIFT SUMMARY PT REMAINED ALERT AND ORIENTED T/O ENTIRETY OF SHIFT. ABLE TO FOLLOW COMMANDS, MAKE PURPOSEFUL MOVEMENTS AND MAKE NEEDS KNOWN. AFEBRILE. REPORTED R SIDE PAIN FOLLOWING COUGHING EPISODE. MEDICATED PER EMAR WITH GOOD BENEFIT. MONITOR SHOWED SR WITH HR IN 70'S-100'S. ON AIRVO AT 50L/50%, INCREASED TO 60% AT APPROXIMATELY 0300 BY RT. R POSTERIOR CHEST TUBE TO WATER SEAL WITH PINK/YELLOW OUTPUT. DRESSING C/D/I. PT REPORTS DECREASED APPETITE BUT WAS ABLE TO DRINK PROTEIN SHAKE W/O DIFFICULTY. UP TO BSC ONCE WITH SMALL, BROWN, LIQUID STOOL. SITS AT BEDSIDE TO URINATE IN BEDSIDE URINAL W/O DIFFICULTY. PG TO KIERAN WITH TKO INFUSING. DRESSING TO PREVIOUSLY REMOVED RIJ C/D/I. WILL CONTINUE TO MONITOR AND REPORT TO ONCOMING RN.
--- NOTE | 2024-01-20 11:43 | NUR ---
REASSESSMENT PT REMAINS ON AIRVO WITH INCREASED OXYGEN NEEDS WITH ANY ACTIVITY. HE GOT UP TO THE CHAIR THIS MORNING, BUT THEN NEEDED TO GO TO THE COMMODE AND HAVE A BM. THE EXTRA EXERTION OF THAT INCREASED PT'S ANXIETY SO THAT HE WANTED TO GO BACK TO BED LESS THAN AN HOUR AFTER SITTING UP. PT'S SCHEDULED ZYPREXA WAS GIVEN AND THAT APPEARED TO HELP PT RELAX. PT HAS SINCE BEEN UP TO THE COMMODE AGAIN AND TOLERATED IT BETTER, BUT DIDN'T WANT TO SIT IN THE CHAIR AFTER BECAUSE OF ANXIETY. LUNGS ARE CLEAR, BUT VERY DIM. CHEST TUBE REMAINS IN PLACE, NO CREPITUS. SS DRAINAGE. SR AT REST, UP TO 1 TEENS WITH ACTIVITY AND ANXIETY. PT DRANK HIS PROTEIN DRINK, BUT DIDN'T EAT MUCH ELSE. PT SAYS EVERYTHING TASTES THE SAME AND HAS A SOUR TASTE TO IT. PT'S HAS BEEN AT THE BEDSIDE AND WAS PRESENT FOR DR. ORTEGA AND DR. HWANG'S ROUNDS THIS MORNING.
--- NOTE | 2024-01-20 16:57 | NUR ---
SHIFT SUMMARY PT HAS CONTINUED ON AIRVO TODAY. HE HAS TOLERATED GETTING UP TO THE COMMODE BETTER WHEN HIS OXYGEN IS INCREASED BEFORE HE MOVES. HE IS STILL HAVING A LOT OF ANXIETY, BUT HAS DONE BETTER MANAGING IT THIS AFTERNOON. CHEST TUBE REMAINS TO WATER SEAL WITH SS DRAINAGE. NO CREPITUS OR AIR LEAK. SINUS TACH IN THE LOW 100S. BETTER APPETITE THIS EVENING WITH FOOD THAT PT'S BROUGHT IN THAT STILL FOLLOWS SPEECH'S GUIDELINES. SEVERAL SMALL LOOSE BM'S THIS SHIFT. VOIDING ON THE COMMODE OR USING THE URINAL.
--- NOTE | 2024-01-20 21:53 | NUR ---
ASSUMPTION OF CARE ASSSUMED CARE OF PATIENT AT 1900. PATIENT ON AIRVO AT 40/55%. PT DESAT WITH EXERTION SO REQUESTS TO INCREASE OXYGEN BEFORE GETTING UP. SP02 95-97%. PT HAS A CHEST TUBE WITH WATER SEAL TO GRAVITY DRAIN, DRESSING C/D/I. HR 90S. SBP 140S-150S. CENTRAL LINE DRESSING C/D/I. PT REQUESTS FOR DRESSING TO BE CHANGED. MEDICATED FOR PAIN PER EMAR.
[2024-01-21] VITALS (22 sets, daily range): BP systolic 104–180; BP diastolic 69–164
[2024-01-21 03:44] LABS: BASOPHILS ABSOLUTE AUTO 0.01 K/mm3 (0.00-0.23); BASOPHILS PERCENT AUTO 0 % (0-2); EOSINOPHILS ABSOLUTE AUTO 0.03 K/mm3 (0.00-0.68); EOSINOPHILS PERCENT AUTO 0 % (0-6); Hemoglobin 11.9 g/dL (13.5-17.5); IMMATURE GRAN ABSOLUTE AUTO 0.05 K/mm3 (0.00-0.10); IMMATURE GRAN PERCENT AUTO 0 % (0-1); LYMPHOCYTES ABSOLUTE AUTO 0.76 K/mm3 (0.84-5.20); LYMPHOCYTES PERCENT AUTO 6 % (21-46); MONOCYTES ABSOLUTE AUTO 0.68 K/mm3 (0.16-1.47); MONOCYTES PERCENT AUTO 5 % (4-13); Mean Corpuscular HGB 31.1 pg (26.0-34.0); Mean Corpuscular HGB Conc 33.1 g/dL (31.5-36.5); Mean Corpuscular Volume 94 fL (80-100); Mean Platelet Volume 9.5 fL (9.1-12.4); NEUTROPHILS ABSOLUTE AUTO 11.65 K/mm3 (1.96-9.15); NEUTROPHILS PERCENT AUTO 88 % (41-73); Platelet Count 465 K/mm3 (150-400); RDW Coefficient Variation 12.7 % (11.7-14.2); RDW Standard Deviation 43.7 fL (35.1-46.3); Red Blood Cell Count 3.83 M/mm3 (4.30-5.90); White Blood Cell Count 13.18 K/mm3 (4.00-11.30)
[2024-01-21 04:01] LABS: Albumin, Blood 2.2 g/dL (3.4-5.0); Albumin/Globulin Ratio 0.5 (0.8-1.8); Bilirubin, Total 0.2 mg/dL (0.1-1.0); Bun/Creatinine Ratio 25.9 (12.0-20.0); Calcium, Blood 9.1 mg/dL (8.5-10.1); Creatinine, Blood 0.66 mg/dL (0.60-1.20); Globulin, Blood 4.3 g/dL (2.2-4.0); Total Protein, Blood 6.5 g/dL (6.4-8.2)
--- NOTE | 2024-01-21 05:54 | NUR ---
SHIFT SUMMARY NO ACUTE CHANGES OVERNIGHT. PT ON AIRVO 40L, FI02 55%. SP02 88-94%. PT DESAT WITH ACTIVITY, RECOVERS ONCE BACK IN BED. SR AT REST AND HR UP TO 110s WITH ACTIVITY. PT ANXIOUS AT TIMES AND WAS GIVEN PRN TRAZODONE BEFORE BEDTIME. CHEST TUBE TO WATER SEAL AND DRAINING TO GRAVITY, DRESSING C/D/I. REDRESSED RIJ SITE PER PT REQUEST. POWERGLIDE IN KIERAN SALINE LOCKED. BED LOWERED AND CALL LIGHT IN REACH.
[2024-01-21] MEDS ORDERED: STIOLTO INH SCH (07:30)
--- NOTE | 2024-01-21 17:51 | NUR ---
SUMMARY PT A/O X4. ON AIRVO 40L FIO2 50-55% WHILE AT REST. WHEN PT GETS OOB OR IS DOING SOMETHING TO EXERT HIMSELF FIO2 IS INCREASED TO 70%. IF FIO2 IS NOT TITRATED UP PRIOR TO EXERTION SPO2 WILL BE LOW 80'S WITHIN SECONDS OF EXERTION AND WOB AND HR INCREASES. GOT OOB TO CHAIR FOR A FEW HOURS, OOB TO COMMODE, WENT TO THE SINK TO BRUSH TEETH, AND ALSO GETS TO SIDE OF BED TO USE URINAL. ANXIETY IS IMPROVING. APPETITE IS IMPROVING AND IS EATING FOODS FROM HOME BROUGHT IN BY HIS . CT TO WATERSEAL DRAINING SEROSANG FLUID. SITE OF CT HAS C/D/I DRESSING AND NO REDNESS. NO OTHER ACUTE CHANGES.
--- NOTE | 2024-01-21 22:18 | NUR ---
ASSUME CARE PT RESTING COMFORTABLY AT BSSR WITH AT BEDSIDE. PT ON AIRVO AT 40L 55% WITH O2 SATS IN 90S. PT ABLE TO REPOSITION SELF AND MAKE NEEDS KNOWN. PT UP TO BEDSIDE COMMODE/URINAL WITH SOME STANDBY ASSISTANCE. AIRVO REARRANGED TO OTHER SIDE OF BED WITH RT ASSISTANCE PER PT REQUEST TO HAVE ALL LINES ON ONE SIDE TO MAKE IT EASIER TO GET UNTANGLED TO GET UP TO USE URINAL/COMMODE. PT HAS ONE EXTENDED DWELL CATHETER IN PLACE, SALINE LOCKED AT THIS TIME. PT IN OVERALL POSITIVE MOOD AT THIS TIME.
[2024-01-22] VITALS (21 sets, daily range): BP systolic 116–174; BP diastolic 65–128
[2024-01-22 04:34] LABS: BASOPHILS ABSOLUTE AUTO 0.03 K/mm3 (0.00-0.23); BASOPHILS PERCENT AUTO 0 % (0-2); EOSINOPHILS ABSOLUTE AUTO 0.02 K/mm3 (0.00-0.68); EOSINOPHILS PERCENT AUTO 0 % (0-6); Hematocrit 39.5 % (37.0-53.0); Hemoglobin 12.8 g/dL (13.5-17.5); IMMATURE GRAN ABSOLUTE AUTO 0.07 K/mm3 (0.00-0.10); IMMATURE GRAN PERCENT AUTO 0 % (0-1); LYMPHOCYTES ABSOLUTE AUTO 0.87 K/mm3 (0.84-5.20); LYMPHOCYTES PERCENT AUTO 6 % (21-46); MONOCYTES ABSOLUTE AUTO 0.75 K/mm3 (0.16-1.47); MONOCYTES PERCENT AUTO 5 % (4-13); Mean Corpuscular HGB 30.6 pg (26.0-34.0); Mean Corpuscular HGB Conc 32.4 g/dL (31.5-36.5); Mean Corpuscular Volume 95 fL (80-100); Mean Platelet Volume 9.3 fL (9.1-12.4); NEUTROPHILS ABSOLUTE AUTO 13.89 K/mm3 (1.96-9.15); NEUTROPHILS PERCENT AUTO 89 % (41-73); Platelet Count 525 K/mm3 (150-400); RDW Coefficient Variation 12.7 % (11.7-14.2); Red Blood Cell Count 4.18 M/mm3 (4.30-5.90); White Blood Cell Count 15.63 K/mm3 (4.00-11.30)
[2024-01-22 04:58] LABS: Bun/Creatinine Ratio 24.9 (12.0-20.0); Calcium, Blood 9.6 mg/dL (8.5-10.1); Creatinine, Blood 0.72 mg/dL (0.60-1.20); Magnesium, Blood 2.1 mg/dL (1.6-2.4); Phosphorus, Blood 4.1 mg/dL (2.5-4.9); Potassium, Blood 4.5 mmol/L (3.5-5.5)
--- NOTE | 2024-01-22 05:42 | NUR ---
SHIFT SUMMARY PT RESTED WELL OVERNIGHT, DID REQUEST PRN ATIVAN FOR ANXIETY OVERNIGHT BUT MAINTAINED OXYGENATION. PT DID NOT HAVE TO BE INCREASED ON O2 WHEN GETTING UP TO BEDSIDE TO USE URINAL THIS MORNING, MAINTAINED O2 SATS IN 90S. PT INDEPENDENT IN MOST ALL ADL TASKS OVERNIGHT, USED CALL LIGHT APPROPRIATELY TO LET RN KNOW OF NEED FOR COMMODE/URINAL. HR INCREASED WITH ACTIVITY AND DECREASED WITH REST. PT DID HAVE BM THIS MORNING, DURING WHICH TIME PT DID NEED INCREASED O2 REQUIREMENTS D/T EXERTINO. PT NOW RETURNED TO 40L AND 65% ON AIRVO. PT REMAINED AT BED SIDE OVERNIGHT.
--- NOTE | 2024-01-22 11:29 | NUR ---
CHEST TUBE CLAMPED VIA STOPCOCK BY DR. ORTEGA
--- NOTE | 2024-01-22 17:41 | NUR ---
SHIFT SUMMARY CHEST TUBE REMAINS CLAMPED. PATIENT DENIES CHEST PAIN AND WORSENING DYSPNEA. O2 REQUIREMENTS HAVE IMPROVED T/O SHIFT-ON AIRVO @ 35L 50%, BUT ALSO TOLERATES 5LPM VIA NC WITHOUT EXERTION. PATIENT WAS ABLE TO WALK AROUND UNIT MULTIPLE TIMES TODAY WITH INCREASED OXYGEN-SEE RT NOTES. LOW APPETITE T/O SHIFT, BUT TOLERATES PO INTAKE WITH FOOD FROM HOME. PATIENT HAD GOOD URINE OUTPUT. NO BM THIS SHIFT. NO OTHER CHANGES THIS SHIFT.
--- NOTE | 2024-01-22 21:46 | NUR ---
ASSUME CARE PT RESTING IN BED DURING BSSR, ON HFNC AIRVO AT 40L AND 55%. PT HAD DESATTING EPISODE SHORTLY BEFORE CHANGE OF SHIFT, BUT STATES FEELING MUCH IMPROVEMENT AND ENDORSES NOT HAVING THE SAME DIFFICULTY TO CATCH BREATH. PT IN GOOD SPIRITS THIS EVENING, NOT AT BEDSIDE TONIGHT. PT REMAINS ON CONTINUOUS CARDIAC MONITORING VIA TELEMETRY BOX AND POWERGLIDE REMAINS IN PLACE, SALINE LOCKED. PT STILL ABLE TO USE CALL LIGHT APPROPRIATELY TO REQUEST ASSISTANCE AND MAKE NEEDS KNOWN. PT ABLE TO REPOSITION SELF TO COMFORT AND REMAINS STANDBY ASSIST WHEN USING URINAL/COMMODE. WALKER ON STANDBY IF NEEDED FOR SUPPORT.
[2024-01-23] VITALS (16 sets, daily range): BP systolic 115–160; BP diastolic 68–104
[2024-01-23 04:21] LABS: BASOPHILS ABSOLUTE AUTO 0.02 K/mm3 (0.00-0.23); BASOPHILS PERCENT AUTO 0 % (0-2); EOSINOPHILS ABSOLUTE AUTO 0.02 K/mm3 (0.00-0.68); EOSINOPHILS PERCENT AUTO 0 % (0-6); Hematocrit 38.6 % (37.0-53.0); Hemoglobin 12.6 g/dL (13.5-17.5); IMMATURE GRAN ABSOLUTE AUTO 0.07 K/mm3 (0.00-0.10); IMMATURE GRAN PERCENT AUTO 1 % (0-1); LYMPHOCYTES ABSOLUTE AUTO 0.78 K/mm3 (0.84-5.20); LYMPHOCYTES PERCENT AUTO 5 % (21-46); MONOCYTES ABSOLUTE AUTO 0.62 K/mm3 (0.16-1.47); MONOCYTES PERCENT AUTO 4 % (4-13); Mean Corpuscular HGB 30.8 pg (26.0-34.0); Mean Corpuscular HGB Conc 32.6 g/dL (31.5-36.5); Mean Corpuscular Volume 94 fL (80-100); Mean Platelet Volume 9.5 fL (9.1-12.4); NEUTROPHILS ABSOLUTE AUTO 13.08 K/mm3 (1.96-9.15); NEUTROPHILS PERCENT AUTO 90 % (41-73); Platelet Count 544 K/mm3 (150-400); RDW Coefficient Variation 12.9 % (11.7-14.2); RDW Standard Deviation 44.6 fL (35.1-46.3); Red Blood Cell Count 4.09 M/mm3 (4.30-5.90); White Blood Cell Count 14.59 K/mm3 (4.00-11.30)
[2024-01-23 04:40] LABS: Bun/Creatinine Ratio 27.2 (12.0-20.0); Calcium, Blood 9.7 mg/dL (8.5-10.1); Creatinine, Blood 0.74 mg/dL (0.60-1.20); Potassium, Blood 4.4 mmol/L (3.5-5.5)
--- NOTE | 2024-01-23 05:57 | NUR ---
SHIFT SUMMARY PT DID WELL OVERNIGHT, REMAINED ON AIRVO. SETTINGS THIS AM ARE 35L 55%. PT REMAINS ALERT AND ORIENTED, ABLE TO USE THE URINAL/COMMODE WITH STANDBY ASSIST. PT NOT DESATTING FREQUENTLY OVERNIGHT WITH EXERTION. PT DID REST FOR A FEW HOURS OVERNIGHT. POWERGLIDE REMAINS IN PLACE AND SALINE LOCKED.
--- NOTE | 2024-01-23 10:40 | NUR ---
AROUND 914 GURDEEP HAD ASKED FOR AN ATIVAN, MEDICATION GIVEN PER NOV. AFTER TAKING THE MEDICATION, HE BEGAN FEELING LIKE HE COULDN'T CATCH HIS BREATH. HIS SATS DROPPED TO MID 60'S AND FIO2 WAS INCREASED TO >90% ON HFNC. HE WAS COACHED TO BREATHE IN THE OXYGEN. HE WAS ABLE TO SHARE IN FULL SENTENCES THE ADDED STRESSORS HE HAS WITH "WANTING TO GO HOME, RETRAINING HIS BREATHING, NOT BEING ABLE TO SEE HIS DOG" HE WAS ABLE TO CALM AND RETURN TO 55% FIO2.
[2024-01-23] MEDS ORDERED: BusPIRone HCl 5 MG Tab PO SCH (11:00)
--- NOTE | 2024-01-23 15:51 | NUR ---
PT WENT ON THE 3RD WALK OF THE DAY, NC @ 8L AND OXIMASK AT 10L, INCREASED TO 10L AND 10L DURING LAP AROUND DESK. PT EXPRESSES THAT IT IS NOT SUCCESSFUL HE WAS ON MORE OXYGEN YESTERDAY WITH RT AND HE WAS ABLE TO MAKE MORE LAPS. HE WENT EARLIER TODAY ON 10L AND 6L AND THEN ON 10L AND 8L, BOTH OF THOSE WALKS HIS SATS DID NOT GO BELOW 85%. ON THIS LAST WALK AT THE 07/11 HIS SATS WENT DOWN TO 84%. HE ALSO NEVER DROPPED BELOW 90% UPON RETURNING TO THE ROOM. VERBAL ENCOURAGEMENT GIVEN SEVERAL TIMES AND HE CONTINUES TO DISMISS HIS IM- PROVEMENT. AT THE BEDSIDE TWICE TODAY. NOW CURRENTLY.
--- NOTE | 2024-01-23 18:21 | NUR ---
GURDEEP ATE A BURGER AND SODA FROM [employer] BROUGHT IN BY HIS FOR DINNER. HE TOLD THIS NURSE THAT HE WAS TOLD HE HAS "CYSTIC FIBROSIS" AND HE HAS NOW BEEN GIVEN A " SENTENCE". HE STATES THAT HE SHOULD NOT HAVE HAD THE SURGERY OR BEEN INTUBATED. HE IS UPSET AND FRUSTRATED, HE REPORTS THAT HIS TOLD HIM THAT HE KNEW THAT AND THAT HE DIDN'T LISTEN. PT WAS GIVEN A HAND OUT ON PULMONARY FIBROSIS AND EXPLAINED THE DIFFERENCES.
--- NOTE | 2024-01-23 20:47 | NUR ---
ASSUMED CARE AT 1900 PATIENT IS ALERT AND ORIENTED X4, ANXIOUS AT TIMES. SP02 97% ON 6L VIA NC, WEARS OXYGEN MASK WHEN GETTING UP TO BSC. CHEST TUBE TO WATER SEAL, SANGUINOUS OUTPUT. HR ST 100-110. BP STABLE, DENIES CP/PRESSURE. UP TO BSC AND USES URINAL INDEPENDENTLY. CALL LIGHT IN REACH
--- NOTE | 2024-01-23 21:48 | NUR ---
PATIENT TRANSFERED TO PCU 17, PATIENT STATED HE NOTIFIED HIS OF THE ROOM TRANSFER
--- NOTE | 2024-01-23 21:51 | NUR ---
ARRIVAL TO UNIT AFTER RECEIVING REPORT FROM LEAD GAME DESIGNER, VENU, PATIENT TRANSFERRED TO UNIT AT APPROX 2120. PATIENT ABLE TO STAND AND TRANSFER TO BED, REPOSITIONING HIMSELF INDEPENDENTLY. IS ALERT AND ORIENTED X4. PERRLA. BRIM AND CROWN PRESSER STRENGTH EQUAL BILATERALLY. MOVES ALL EXTREMITIES EQUALLY. COMMUNICATES NEEDS EFFECTIVELY. RECEIVED IN REPORT THAT PATIENT DOES EXPERIENCE EPISODES OF INCREASED ANXIETY, PO TRAZADONE ADMINISTERED PER EMAR AT PATIENT REQUEST. TELEMETRY SHOWING SINUS TACH 100s-110s. BP STABLE, SBP 140s. DENIES CHEST PAIN, PRESSURE. ON 6L VIA HI FLOW NC, SATs >90%. DOES DESAT SOME WITH ACTIVITY, USES OXYGEN MASK WITH AMBULATION TO [facility]. ABSENT LUNG SOUNDS TO RML, RLL. CLEAR RUL, LAUREN, AND LLL. SHALLOW RESPIRATIONS NOTED, RR 20-24. CHEST TUBE TO R POSTERIOR TO WATER SEAL, SEROUS DRAINAGE NOTED. DRESSING C/D/I. REVIEWED VENU LEAD GAME DESIGNER's SHIFT ASSESSMENT, THIS RN AGREEING WITH DOCUMENTATION. CALL LIGHT IN REACH.
[2024-01-24 03:38] VITALS: BP 148/98
[2024-01-24 04:09] LABS: BASOPHILS ABSOLUTE AUTO 0.03 K/mm3 (0.00-0.23); BASOPHILS PERCENT AUTO 0 % (0-2); EOSINOPHILS ABSOLUTE AUTO 0.03 K/mm3 (0.00-0.68); EOSINOPHILS PERCENT AUTO 0 % (0-6); Hematocrit 40.8 % (37.0-53.0); Hemoglobin 13.6 g/dL (13.5-17.5); IMMATURE GRAN ABSOLUTE AUTO 0.11 K/mm3 (0.00-0.10); IMMATURE GRAN PERCENT AUTO 1 % (0-1); LYMPHOCYTES ABSOLUTE AUTO 0.78 K/mm3 (0.84-5.20); LYMPHOCYTES PERCENT AUTO 4 % (21-46); MONOCYTES ABSOLUTE AUTO 0.92 K/mm3 (0.16-1.47); MONOCYTES PERCENT AUTO 5 % (4-13); Mean Corpuscular HGB 31.2 pg (26.0-34.0); Mean Corpuscular HGB Conc 33.3 g/dL (31.5-36.5); Mean Corpuscular Volume 94 fL (80-100); Mean Platelet Volume 9.2 fL (9.1-12.4); NEUTROPHILS ABSOLUTE AUTO 16.95 K/mm3 (1.96-9.15); NEUTROPHILS PERCENT AUTO 90 % (41-73); Platelet Count 578 K/mm3 (150-400); RDW Coefficient Variation 12.9 % (11.7-14.2); RDW Standard Deviation 44.2 fL (35.1-46.3); Red Blood Cell Count 4.36 M/mm3 (4.30-5.90); White Blood Cell Count 18.82 K/mm3 (4.00-11.30)
[2024-01-24 04:32] LABS: Albumin, Blood 2.7 g/dL (3.4-5.0); Anion Gap 6 mmol/L (3-11); Blood Urea Nitrogen 18 mg/dL (8-24); Bun/Creatinine Ratio 25.3 (12.0-20.0); CO2, Blood 35 mmol/L (21-32); Calcium, Blood 9.7 mg/dL (8.5-10.1); Chloride, Blood 99 mmol/L (98-108); Creatinine, Blood 0.71 mg/dL (0.60-1.20); Glomerular Filtration Rate 105 (60-); Glucose, Blood 144 mg/dL (70-99); Potassium, Blood 4.6 mmol/L (3.5-5.5); Sodium, Blood 135 mmol/L (136-145)
--- NOTE | 2024-01-24 04:53 | NUR ---
SHIFT SUMMARY NO ACUTE EVENTS SINCE ARRIVAL TO UNIT. PATIENT SLEPT INTERMITTENTLY THROUGHOUT SHIFT, EASILY AROUSABLE WITH VERBAL STIMULI. TELEMETRY SHOWING SINUS TACH 100s-110s. RATE INCREASE TO 120s WITH MOBILITY. BP STABLE, SBP 130s-140s. DENIES CHEST PAIN, PRESSURE. CURRENTLY ON 4L VIA HI FLOW NC, SATs >90%. X1 EPISODE WHERE PATIENT DID DESAT TO 70s WITH MOBILITY REQUIRING ADDITIONAL OXYGEN FOR RECOVERY PATIENT REMOVED NC. CONTINUES TO USE OXYGEN MASK AT 2L-4L WITH MOBILITY AND WHILE SLEEPING PATIENT IS A MOUTH BREATHER. RR 19-28. CHEST TUBE REMAINS IN PLACE. DRESSING C/D/I. APPROX 200ML OF SANGUINOUS DRAINAGE NOTED. PATIENT IS A SBA TO BSC. VOIDING. X1 SMALL LOOSE BROWN BM. CALL LIGHT IN REACH. WILL CONTINUE TO MONITOR AND REPORT TO ONCOMING RN.
[2024-01-24] MEDS ORDERED: Omeprazole 20 MG CapCR PO SCH (06:00)
[2024-01-24 12:39] VITALS: BP 140/96
[2024-01-24 15:05] VITALS: BP 139/95
--- NOTE | 2024-01-24 17:13 | NUR ---
Pt states he no longer would like to get the lovenox shots. He has been getting up and walking small amounts around the bed and to the bathroom occasionally. States he would prefer SHELLI hose as the lovenox is really starting to be painful at the injection sites. SHELLI hose were applied. Powerglide dressing change done on the RUE midline IV.
[2024-01-24 20:54] VITALS: BP 143/93
[2024-01-24 23:07] VITALS: BP 149/93
[2024-01-25 04:46] VITALS: BP 148/87
[2024-01-25 05:13] LABS: BASOPHILS ABSOLUTE AUTO 0.06 K/mm3 (0.00-0.23); BASOPHILS PERCENT AUTO 0 % (0-2); EOSINOPHILS ABSOLUTE AUTO 0.73 K/mm3 (0.00-0.68); EOSINOPHILS PERCENT AUTO 4 % (0-6); Hematocrit 42.7 % (37.0-53.0); Hemoglobin 13.7 g/dL (13.5-17.5); IMMATURE GRAN ABSOLUTE AUTO 0.07 K/mm3 (0.00-0.10); IMMATURE GRAN PERCENT AUTO 0 % (0-1); LYMPHOCYTES ABSOLUTE AUTO 1.51 K/mm3 (0.84-5.20); LYMPHOCYTES PERCENT AUTO 9 % (21-46); MONOCYTES ABSOLUTE AUTO 1.12 K/mm3 (0.16-1.47); MONOCYTES PERCENT AUTO 6 % (4-13); Mean Corpuscular HGB 30.6 pg (26.0-34.0); Mean Corpuscular HGB Conc 32.1 g/dL (31.5-36.5); Mean Corpuscular Volume 96 fL (80-100); Mean Platelet Volume 9.4 fL (9.1-12.4); NEUTROPHILS ABSOLUTE AUTO 14.17 K/mm3 (1.96-9.15); NEUTROPHILS PERCENT AUTO 80 % (41-73); Platelet Count 509 K/mm3 (150-400); RDW Standard Deviation 45.4 fL (35.1-46.3); Red Blood Cell Count 4.47 M/mm3 (4.30-5.90); White Blood Cell Count 17.66 K/mm3 (4.00-11.30)
[2024-01-25 05:59] LABS: Albumin, Blood 2.6 g/dL (3.4-5.0); Albumin/Globulin Ratio 0.6 (0.8-1.8); Bilirubin, Total 0.2 mg/dL (0.1-1.0); Calcium, Blood 9.9 mg/dL (8.5-10.1); Creatinine, Blood 0.78 mg/dL (0.60-1.20); Globulin, Blood 4.5 g/dL (2.2-4.0); Potassium, Blood 3.8 mmol/L (3.5-5.5); Total Protein, Blood 7.1 g/dL (6.4-8.2)
--- NOTE | 2024-01-25 05:59 | NUR ---
SHIFT SUMMARY A&Ox4, CALLS AND COMMUNICATES NEEDS APPROPRIATELY. BP STABLE, SINUS TACH 100's, DENIES CP/PRESSURE. SpO2> 92% 4-6 L VIA NC, VENTI MASK WHILE SLEEPING, DENIES SOB. CHEST TUBE IN R LATERAL CHEST WALL WNL, 35mLs SEROSANGUENOUS OUTPUT. IND IN ROOM. AT BEDSIDE. MANAGED PT's ANXIETY PER EMAR. NO OTHER EVENTS, WILL REPORT TO ONCOMING RN.
[2024-01-25] MEDS ORDERED: MethylPREDNISolone Sod Succ 40 MG VIAL IV SCH (09:00)
[2024-01-25 09:06] VITALS: BP 119/82
--- NOTE | 2024-01-25 09:07 | NUR ---
Dr. Pérez here, chest tube pulled. Noted order for CT chest. Vital signs stable. Pt states he feels well this morning. Lung sounds noted: Expiratory crackles on the right upper lobe, otherwise clear auscultated anteriorly. Fine inspiratory crackles noted in the bases, but a slight rub noted on the right lower lobe, with diminished sounds. Pt has no respiratory distress, sitting up having normal conversation post chest tube discontinuation.
[2024-01-25 11:12] VITALS: BP 147/95
--- NOTE | 2024-01-25 11:13 | NUR ---
Pt walked in the room and after a break of a few minutes, he walked in the hallway. details to follow.
--- NOTE | 2024-01-25 11:16 | NUR ---
Pt walked in the room, back and forth around the bed, starting on 3 l/min of n.c. O2 delivery. Spo2 started at 92%, then down to 85%. Per Dr. Pierce, this is acceptable during activity as long as he then begins recovery. Pt stopped, said that he felt a little short of breath. Oxygen was increased to 4 l/min when it continued down to 82%. It then improved and he completed his short walk, with improvement to 88 and then 91% spo2. He took a few minutes rest while supplies were collected for a walk in the hallway. He walked a total of 100 feet, using the walker, on 4 l/min of oxygen. Spo2 remained at 85% or higher throughout the walk. Now back in the room sitting up in bed.
[2024-01-25] MEDS ORDERED: BUSPIRONE HCL7.5 M1 PO (13:21)
[2024-01-25] MEDS ORDERED: METPRE4 PO (13:26)
[2024-01-25] MEDS ORDERED: SERT50 PO (13:28)
[2024-01-25] MEDS ORDERED: TRAZ50 PO (13:28)
--- NOTE | 2024-01-25 14:21 | NUR ---
Discharge instructions, new medications and prescriptions were reviewed with the patient and his . Midline IV catheter was removed, gauze and coban applied. Pt dressed and was assisted to wheelchair with oxygen at 4 l/min per orders and home Rx. took belongings out to the car. Room was thoroughly checked for remaining belongings and these were given to the patient. he was taken out to the car by the [facility] [place].
== END 2024-01-25 13:50 | disposition home or self-care (01) | DRG 870 ==
LOC: ER 16:36 → PCU 22:13 → ICUE 22:13 → PCU 01-09 19:00 → ICUE 01-11 10:08 → PCU 01-23 21:25
PROVIDERS: Internal Medicine Critical Care Medicine; Physician Assistant; Student in an Organized Health Care Education/Training Program; ADMIT Internal Medicine
PROC: 0W993ZZ Drainage of Right Pleural Cavity, Percutaneous Approach (ICD-10-PCS; 2024-01-08)
PROC: 5A1955Z Respiratory Ventilation, Greater than 96 Consecutive Hours (ICD-10-PCS; principal; 2024-01-11)
PROC: 5A0945A Assistance with Respiratory Ventilation, 24-96 Consecutive Hours, High Flow/Velocity Cannula (ICD-10-PCS; 2024-01-11)
PROC: 0BH17EZ Insertion of Endotracheal Airway into Trachea, Via Natural or Artificial Opening (ICD-10-PCS; 2024-01-11)
PROC: 3E03329 Introduction of Other Anti-infective into Peripheral Vein, Percutaneous Approach (ICD-10-PCS; 2024-01-11)
PROC: 02HV33Z Insertion of Infusion Device into Superior Vena Cava, Percutaneous Approach (ICD-10-PCS; 2024-01-14)
PROC: B548ZZA Ultrasonography of Superior Vena Cava, Guidance (ICD-10-PCS; 2024-01-14)
DX: A41.50 Gram-negative sepsis, unspecified (principal); I26.99 Other pulmonary embolism without acute cor pulmonale; J15.69 Pneumonia due to other Gram-negative bacteria; J96.21 Acute and chronic respiratory failure with hypoxia; J84.9 Interstitial pulmonary disease, unspecified; C34.31 Malignant neoplasm of lower lobe, right bronchus or lung; J44.1 Chronic obstructive pulmonary disease with (acute) exacerbation; J44.0 Chronic obstructive pulmonary disease with (acute) lower respiratory infection; J94.8 Other specified pleural conditions; F05 Delirium due to known physiological condition; E87.0 Hyperosmolality and hypernatremia; J91.8 Pleural effusion in other conditions classified elsewhere; R65.20 Severe sepsis without septic shock; K21.9 Gastro-esophageal reflux disease without esophagitis; G62.9 Polyneuropathy, unspecified; I10 Essential (primary) hypertension; E78.5 Hyperlipidemia, unspecified; J84.112 Idiopathic pulmonary fibrosis; R07.9 Chest pain, unspecified; Z88.2 Allergy status to sulfonamides; Z88.8 Allergy status to other drugs, medicaments and biological substances; Z79.899 Other long term (current) drug therapy; Z90.2 Acquired absence of lung [part of]; F22 Delusional disorders; Z99.81 Dependence on supplemental oxygen
CPT/HCPCS: 0241U; 31500; 32551; 32555; 36415; 36556; 36600; 51701; 71045; 71046; 71260; 80048; 80053; 80069; 80202; 81003; 82042; 82803; 82945; 83605; 83615; 83735; 83880; 83986; 84100; 84157; 84443; 84478; 84484; 85025; 85610; 87040; 87070; 87075; 87205; 87633; 88108; 88305; 88341; 88342; 89051; 92526; 92610; 93005; 93010; 93306; 93970; 94002; 94003; 94640; 94664; 94760; 94761; 94762; 96365-59; 96375-59; 97110; 97112; 97116; 97162; 97166; 97530; 99285-25; A9270; C1751; C9113; J0696; J1170; J1650; J1885; J1940; J2060; J2250; J2270; J2405; J2543; J2704; J2920; J3010; J3370; J3411; J7050; J7120; Q9967

== ENCOUNTER 2024-01-28 08:10 | Inpatient (IN) | payer OTHER ==
[~2024-01-28] VITALS: Ht 185.4 cm; Wt 76.9 kg
[~2024-01-28 08:10] MED LIST changes: +Ativan1 MG PO; +BUSPIRONE HCL7.5 M1 PO; +COLACE100 MG PO; +GABA100 PO; +METOPROLOL TART25 MG PO; +METPRE4 PO; +OMEP20ER PO; +OXYC5 PO; +ROSU5 PO; +SERT50 PO; +SILD50TA PO; +STIOLTO RESPIMAT4 G1 IH; +TRAZ50 PO
[2024-01-28 08:30] LABS: BASOPHILS ABSOLUTE AUTO 0.06 K/mm3 (0.00-0.23); BASOPHILS PERCENT AUTO 0 % (0-2); EOSINOPHILS ABSOLUTE AUTO 0.48 K/mm3 (0.00-0.68); EOSINOPHILS PERCENT AUTO 2 % (0-6); Hematocrit 41.9 % (37.0-53.0); Hemoglobin 13.5 g/dL (13.5-17.5); IMMATURE GRAN ABSOLUTE AUTO 0.17 K/mm3 (0.00-0.10); IMMATURE GRAN PERCENT AUTO 1 % (0-1); LYMPHOCYTES ABSOLUTE AUTO 0.66 K/mm3 (0.84-5.20); LYMPHOCYTES PERCENT AUTO 3 % (21-46); MONOCYTES ABSOLUTE AUTO 1.14 K/mm3 (0.16-1.47); MONOCYTES PERCENT AUTO 5 % (4-13); Mean Corpuscular HGB 30.4 pg (26.0-34.0); Mean Corpuscular HGB Conc 32.2 g/dL (31.5-36.5); Mean Corpuscular Volume 94 fL (80-100); Mean Platelet Volume 9.3 fL (9.1-12.4); NEUTROPHILS ABSOLUTE AUTO 21.03 K/mm3 (1.96-9.15); NEUTROPHILS PERCENT AUTO 89 % (41-73); Platelet Count 452 K/mm3 (150-400); RDW Coefficient Variation 12.8 % (11.7-14.2); RDW Standard Deviation 44.4 fL (35.1-46.3); Red Blood Cell Count 4.44 M/mm3 (4.30-5.90); White Blood Cell Count 23.54 K/mm3 (4.00-11.30)
[2024-01-28 08:47] LABS: Magnesium, Blood 1.7 mg/dL (1.6-2.4)
[2024-01-28 08:48] LABS: Albumin, Blood 2.5 g/dL (3.4-5.0); Albumin/Globulin Ratio 0.5 (0.8-1.8); Bilirubin, Total 0.4 mg/dL (0.1-1.0); Bun/Creatinine Ratio 21.4 (12.0-20.0); Calcium, Blood 9.7 mg/dL (8.5-10.1); Creatinine, Blood 0.75 mg/dL (0.60-1.20); Globulin, Blood 4.7 g/dL (2.2-4.0); Potassium, Blood 4.6 mmol/L (3.5-5.5); Total Protein, Blood 7.2 g/dL (6.4-8.2)
[2024-01-28] MEDS ORDERED: Cefepime HCl 2,000 MG in NS 100 ML IV ONE (09:25)
[2024-01-28] MEDS ORDERED: NS 1,000 ML IV SCH ×2 (09:30→13:25)
[2024-01-28] MEDS ORDERED: Azithromycin 500 MG in NS 250 ML IV ONE (09:30)
[2024-01-28] MEDS ORDERED: Acetaminophen 325 MG TABLET PO PRN (10:20)
[2024-01-28] MEDS ORDERED: Prochlorperazine Edisylate 10 mg Vial IV PRN (10:25)
[2024-01-28 11:06] LABS: Adenovirus Not Detected (NOT DETECT); Bordetella pertussis Not Detected (NOT DETECT); Chlamydophila pneumoniae Not Detected (NOT DETECT); Coronavirus 229E Not Detected (NOT DETECT); Coronavirus HKU1 Not Detected (NOT DETECT); Coronavirus NL63 Not Detected (NOT DETECT); Coronavirus OC43 Not Detected (NOT DETECT); Human Metapneumovirus Not Detected (NOT DETECT); Human Rhinovirus/Enterovirus Not Detected (NOT DETECT); Influenza A/2009-H1 Not Detected (NOT DETECT); Influenza A/H1 Not Detected (NOT DETECT); Influenza A/H3 Not Detected (NOT DETECT); Influenza B Not Detected (NOT DETECT); Mycoplasma pneumoniae Not Detected (NOT DETECT); Parainfluenza Virus 1 Not Detected (NOT DETECT); Parainfluenza Virus 2 Not Detected (NOT DETECT); Parainfluenza Virus 3 Not Detected (NOT DETECT); Parainfluenza Virus 4 Not Detected (NOT DETECT); Respiratory Syncytial Virus Not Detected (NOT DETECT); SARS-Cov-2 (COVID-19), BioFire Not Detected (NOT DETECT)
[2024-01-28] MEDS ORDERED: OxyCODONE HCL 5 MG TAB PO PRN (11:10)
[2024-01-28] MEDS ORDERED: SILD50TA PO (11:33)
[2024-01-28 11:44] VITALS: BP 120/82
[2024-01-28 11:45] VITALS: BP 120/82
[2024-01-28] MEDS ORDERED: Sertraline HCl 50 MG Tab PO SCH (12:00)
[2024-01-28] MEDS ORDERED: Metoprolol Succinate 25 MG TABCR PO SCH (12:00)
--- NOTE | 2024-01-28 12:35 | NUR ---
ADMISSION: PT ARRIVED TO PCU 7 @1140. SLID FROM [facility] TO HOSPITAL BED. PT ALERT AND ORIENTED X4, ABLE TO FOLLOW COMMANDS AND MAKE NEEDS KNOWN. COOPERATIVE WITH CARE. ANXIOUS AT TIMES. STREGNTH EQUAL BILATERALLY. PEERLA. BP STABLE, HR SR 90'S, AFEBRILE. SPO2 >96% ON AIRVO SETTINGS 40L 55%. RESPIRATIONS EVEN AND UNLABORED AT REST. PULSES STRONG AND EQUAL THROUGHOUT. ABD SOFT, NON TENDER, BOWEL SOUNDS +. PT STATES DIARRHEA X2 DAYS. ORIENTED TO ROOM AND CALL LIGHT SYSTEM. AT BEDSIDE PRIOR TO PT ARRIVAL, UPDATED ON PT PLAN OF CARE. WILL RETURN THIS EVENING. L. AC & R. FOREARM IV SALINE LOCKED. BED IN LOW, CALL LIGHT IN REACH.
[2024-01-28] MEDS ORDERED: Gabapentin 100 MG Cap PO SCH (14:00)
[2024-01-28] MEDS ORDERED: BusPIRone HCl 5 MG Tab PO SCH (14:00)
[2024-01-28 15:05] VITALS: BP 124/84
[2024-01-28] MEDS ORDERED: Cefepime HCl 2,000 MG in NS 100 ML IV SCH (16:00)
[2024-01-28] MEDS ORDERED: CefTRIAXone Sodium 1,000 MG in NS 100 ML IV SCH (16:00)
--- NOTE | 2024-01-28 17:03 | NUR ---
SHIFT SUMMARY: PT WITH NO ACUTE CHANGES SINCE ADMISSION. REMAINS ON AIRVO SETTINGS 40L 55%. SPO2 >96%. RESPIRATIONS EVEN AND UNLABORED AT REST. NS GTT @75ML/HR. AT BEDSIDE THIS EVENING, UPDATED ON PT PLAN OF CARE. PT SBA TO AND FROM BS, STOOL SAMPLE SENT TO LAB, AWAITING RESULTS. BED IN LOW, CALL LIGHT IN REACH, WILL REPORT TO ONCOMING RN.
[2024-01-28 19:53] VITALS: BP 134/89
[2024-01-28] MEDS ORDERED: Lactobacil 2-S.Thermo-Bifido 1 1 Cap PO SCH (21:00)
[2024-01-28] MEDS ORDERED: LORazepam 0.5 MG Tab PO SCH (21:00)
[2024-01-28] MEDS ORDERED: Famotidine 20 MG Tab PO SCH (21:00)
[2024-01-28] MEDS ORDERED: Atorvastatin 10 MG Tab PO SCH (21:00)
[2024-01-28] MEDS ORDERED: TraZODone HCl 50 MG Tab PO SCH (21:00)
[2024-01-28] MEDS ORDERED: MethylPREDNISolone Sod Succ 40 MG VIAL IV SCH (21:00)
[2024-01-28 21:09] LABS: Adenovirus F 40/41 Not Detected (NOT DETECT); Astrovirus Not Detected (NOT DETECT); Campylobacter Sp Not Detected (NOT DETECT); Cryptosporidium Not Detected (NOT DETECT); Cyclospora Cayetanensis Not Detected (NOT DETECT); E. Coli O157 Not Detected (NOT DETECT); Entamoeba Histolytica Not Detected (NOT DETECT); Enteroaggregative E. coli-EAEC Not Detected (NOT DETECT); Enteropathogenic E. coli-EPEC Not Detected (NOT DETECT); Enterotoxigenic E. coli-ETEC Not Detected (NOT DETECT); Giardia Lamblia Not Detected (NOT DETECT); Norovirus GI/GII Not Detected (NOT DETECT); Plesiomonas Shigelloides Not Detected (NOT DETECT); Rotavirus A Not Detected (NOT DETECT); Salmonella Sp Not Detected (NOT DETECT); Sapovirus Not Detected (NOT DETECT); Shiga Toxin-prod E. coli-STEC Not Detected (NOT DETECT); Shigella/Enteroin E. coli-EIEC Not Detected (NOT DETECT); Vibrio Cholerae Not Detected (NOT DETECT); Vibrio Sp Not Detected (NOT DETECT); Yersinia Enterocolitica Not Detected (NOT DETECT)
--- NOTE | 2024-01-28 22:23 | NUR ---
ASSUMPTION OF CARE AFTER RECEIVING REPORT FROM TAVON RN, THIS RN ASSUMED CARE AT APPROX 1915. PATIENT ALERT AND ORIENTED X4. EXPERIENCES EPISODES OF INCREASED ANXIETY, MANAGING PER EMAR WITH SCHEDULED PO MANAGEMENT AND WITH THERAPEUTIC COMMUNICATION/EDUCATION REGARDING RESPIRATORY STATUS. PERRLA. MOVES ALL EXTREMITIES EQUALLY. TELEMETRY SHOWING SINUS 90s. BP STABLE, SBP 130s. REPORTS PLEURITIC CHEST PAIN THAT INCREASES WITH DEEPER RESPIRATIONS. NON-RADIATING. ON AIRVO 40L 55%, SATs >90%. DOES EXPERIENCE INCREASED SHORTNESS OF BREATH, EPISODES OF DESATURATION WITH MOBILITY. IMPROVES AT REST. PATIENT IS A SBA TO BSC. EXPERIENCING EPISODES OF LOOSE STOOLS. STOOL SAMPLE POSITIVE FOR C-DIFF. PATIENT NOW IN CONTACT ISOLATION. REPOSITIONS HIMSELF INDEPENDENTLY IN BED. CALL LIGHT IN REACH.
[2024-01-28 23:31] VITALS: BP 137/78
[2024-01-29] MEDS ORDERED: Tiotropium Bromide 2.5 MCG/ACT MIST INHAL (10 ACT/4 GM) INH SCH (00:35)
[2024-01-29 03:11] VITALS: BP 156/89
[2024-01-29 03:57] LABS: BASOPHILS ABSOLUTE AUTO 0.02 K/mm3 (0.00-0.23); BASOPHILS PERCENT AUTO 0 % (0-2); EOSINOPHILS ABSOLUTE AUTO 0.01 K/mm3 (0.00-0.68); EOSINOPHILS PERCENT AUTO 0 % (0-6); Hematocrit 38.3 % (37.0-53.0); Hemoglobin 12.4 g/dL (13.5-17.5); IMMATURE GRAN ABSOLUTE AUTO 0.08 K/mm3 (0.00-0.10); IMMATURE GRAN PERCENT AUTO 1 % (0-1); LYMPHOCYTES ABSOLUTE AUTO 0.59 K/mm3 (0.84-5.20); LYMPHOCYTES PERCENT AUTO 3 % (21-46); MONOCYTES ABSOLUTE AUTO 0.64 K/mm3 (0.16-1.47); MONOCYTES PERCENT AUTO 4 % (4-13); Mean Corpuscular HGB 30.5 pg (26.0-34.0); Mean Corpuscular HGB Conc 32.4 g/dL (31.5-36.5); Mean Corpuscular Volume 94 fL (80-100); Mean Platelet Volume 9.5 fL (9.1-12.4); NEUTROPHILS ABSOLUTE AUTO 16.17 K/mm3 (1.96-9.15); NEUTROPHILS PERCENT AUTO 92 % (41-73); Platelet Count 420 K/mm3 (150-400); RDW Coefficient Variation 12.8 % (11.7-14.2); RDW Standard Deviation 44.7 fL (35.1-46.3); Red Blood Cell Count 4.07 M/mm3 (4.30-5.90); White Blood Cell Count 17.51 K/mm3 (4.00-11.30)
[2024-01-29 04:18] LABS: Albumin, Blood 2.4 g/dL (3.4-5.0); Albumin/Globulin Ratio 0.6 (0.8-1.8); Bilirubin, Total 0.2 mg/dL (0.1-1.0); Bun/Creatinine Ratio 25.9 (12.0-20.0); Calcium, Blood 9.4 mg/dL (8.5-10.1); Creatinine, Blood 0.66 mg/dL (0.60-1.20); Globulin, Blood 4.3 g/dL (2.2-4.0); Potassium, Blood 4.2 mmol/L (3.5-5.5); Total Protein, Blood 6.7 g/dL (6.4-8.2)
[2024-01-29 04:33] LABS: PCO2 Arterial 60.1 mmHg (35-45); PO2 Arterial 77.5 mmHg (80-100); pH Blood Arterial 7.41 (7.35-7.45)
--- NOTE | 2024-01-29 04:48 | NUR ---
SHIFT SUMMARY NO ACUTE EVENTS SINCE ASSUMPTION OF CARE. PATIENT SLEPT INTERMITTENTLY THROUGHOUT SHIFT. EASILY AROUSABLE WITH VERBAL STIMULI. COMMUNICATES NEEDS EFFECTIVELY. TELEMETRY SHOWING SINUS/SINUS TACH 90s-110s. BP STABLE. REMAINS ON AIRVO 40L 55%. SATs 88-94%. X1 EPISODE WHERE PATIENT DID DESAT TO THE 70s REQUIRING ADDITIONAL OXYGEN FOR RECOVERY WHILE USING BSC. RESPIRATIONS EVEN, UNLABORED AT REST. INCREASED SHORTNESS OF BREATH WITH MOBILITY. ONE PERSON ASSIST WITH MOBILITY TO BSC. REPOSITIONS HIMSELF INDEPENDENTLY IN BED. VOIDING. MULTIPLE LOOSE STOOLS. CALL LIGHT IN REACH. WILL CONTINUE TO MONITOR AND REPORT TO ONCOMING RN.
[2024-01-29] MEDS ORDERED: Enoxaparin 40 MG/0.4 ML SYR SC SCH (09:00)
[2024-01-29] MEDS ORDERED: AmLODIPine Besylate 5 MG Tab PO SCH (09:00)
[2024-01-29] MEDS ORDERED: Azithromycin 500 MG in NS 250 ML IV SCH (09:00)
[2024-01-29 11:56] VITALS: BP 134/90
[2024-01-29] MEDS ORDERED: Vancomycin HCl 125 MG Cap PO SCH (12:00)
--- NOTE | 2024-01-29 14:11 | NUR ---
Spoke with pt's Lorie timur am, she states her frustration at pt having to return to the hospital so quick after discharge, but states she's keeping her head up. Will remain available for pt and .
[2024-01-29 15:29] VITALS: BP 141/93
--- NOTE | 2024-01-29 19:07 | NUR ---
End of shift note. Pt has been awake and resting in bed for much of the day. Family in to visit. BiPAP set up this morning with Pulmonolgist in the room. Pt has tolerated BiPAP at times. Pt considerably desats with any type of exertion while on BiPAP, Pt is able to maintain sats better on HFNC. Pt can stand at bedside for urinal with minimal assistance. Pt is able to make needs known, call light is within reach.
[2024-01-29 19:25] VITALS: BP 134/90
--- NOTE | 2024-01-29 20:53 | NUR ---
ASSUMPTION OF CARE AFTER RECEIVING REPORT FROM RASHARD LUU, THIS RN ASSUMED CARE AT APPROX 1915. PATIENT ALERT, WATCHING A MOVIE ON PERSONAL COMPUTER WITH AT BEDSIDE. ALERT AND ORIENTED X4. COMMUNICATES NEEDS EFFECTIVELY. REPORTING MILD OCCASIONAL PLEURITIC CHEST PAIN THAT INCREASES WITH DEEPER RESPIRATIONS. ALSO REPORTING THAT HE TENDS TO EXPERIENCE A HEADACHE WITH USE OF BIPAP. PILLOW PROVIDED FOR CHEST SPLINTING WITH DEEPER RESPIRATIONS. PLAN TO MEDIATE PER EMAR PRN. TELEMETRY SHOWING SINUS 80s-90s. BP STABLE. CURRENTLY ON AIRVO 40L 45%, SATs >90 AT REST. SHORTNESS OF BREATH WITH MOBILITY SEEMS TO BE IMPROVING. PATIENT MAINTAINED OXYGEN SATURATIONS >88% WHILE UP USING BSC. RESPIRATIONS EVEN, UNLABORED AT REST. PLAN TO USE BIPAP THROUGHOUT THE NIGHT TOLERATED. PATIENT REPOSITIONS HIMSELF INDEPENDENTLY IN BED. CALLS APPROPRIATELY FOR ASSIST PRN WITH MOBILITY. CALL LIGHT IN REACH. AT BEDSIDE.
[2024-01-29] MEDS ORDERED: Rosuvastatin Calcium 10 MG Tab PO SCH (21:00)
[2024-01-29 23:35] VITALS: BP 130/87
[2024-01-30 04:27] VITALS: BP 139/92
--- NOTE | 2024-01-30 05:09 | NUR ---
SHIFT SUMMARY PATIENT SLEPT INTERMITTENTLY OR RESTED QUIETLY THROUGHOUT SHIFT. EASILY AROUSABLE WITH VERBAL STIMULI. TELEMETRY SHOWING SINUS 80s-90s. BP STABLE. CONTINUING TO REPORT INTERMITTENT PLEURITIC CHEST PAIN, TOLERABLE AT THIS TIME. REMAINS ON AIRVO 40L 45%, SATs >90%. PATIENT TOLERATED WEARING BIPAP MASK FOR SMALL PERIODS OF TIME THROUGHOUT NIGHT. REPORTING DIFFICULTY WITH TOLERATING DEVICE. EARLY THIS MORNING, WH[place] [facility] [place], PATIENT DID EXPERIENCE AN EPISODE OF INCREASED SHORTNESS OF BREATH, OXYGEN SATs <85%. PATIENT SWITCHED TO AIRVO REQUIRING ADDITIONAL OXYGEN TO SLOWLY RECOVER AT REST. PATIENT REPOSITIONS HIMSELF INDEPENDENTLY IN BED. IS A SBA [place] [facility] VOIDING. DECREASING LOOSE STOOLS NOTED. CALL LIGHT IN REACH. WILL CONTINUE TO MONITOR AND REPORT TO ONCOMING RN.
[2024-01-30 08:19] VITALS: BP 137/89
[2024-01-30] MEDS ORDERED: MethylPREDNISolone Sod Succ 40 MG VIAL IV SCH (09:00)
[2024-01-30] MEDS ORDERED: Rivaroxaban 10 MG Tab PO SCH (09:00)
--- NOTE | 2024-01-30 09:23 | NUR ---
AM SUMMARY PATIENT IS ALERT AND ORIENTEDX4. PT REPORTED THAT HE DID NOT LIKE THE BREAKFAST WE BROUGHT HIM BUT THAT HE HAD FOOD IN HIS COOLER WHICH IS IN ROOM. PATIENT REPORTED NO CP THIS MORNING BUT SAID HE WAS VERY ANXIOUS. DOCTOR KELLY WAS AT PT BEDSIDE AROUND 0915. PT TOLD DOCTOR THAT DIARRHEA WAS MUCH BETTER TODAY. PATIENT EXPRESSED WANT TO GO HOME. DOCTOR PLAN IS TO GET THE PT ON NASAL CANNULA AND WHEN NEEDED OFFER HUMIFIED AIRVO NEEDED WHEN MOBILIZING AND IN NEED OR THROUGHOUT THE NIGHT NEEDED. IF PT CAN TOLERATE NASAL CANNULA WELL TODAY, HE MAY BE DISCHARGED. DOCTOR PLAN WHEN DISCHARGED IS FOR PATIENT TO GO HOME ON 8 LITERS O2. VITALS ARE STABLE. SBP REMAINS 140-130 AND DBP 80-90'S. SPO2 IS >90. DOCTOR WANTS PT TO ATTEMPT HOME ACTIVITY LIKE A SHOWER WITH NASAL CANNULA TO SEE HOW IT IS TOLERATED. CALL LIGHT CURRENTLY IN REACH, WILL CONTINUE TO MONITOR.
[2024-01-30 12:09] VITALS: BP 135/96
--- NOTE | 2024-01-30 14:46 | NUR ---
NURSE BLANK AND I CHECKED ON PATIENT AT 1430. PATIENT WAS IN BED LAYING DOWN WITH BIPAP ON. THEN I SAW CALL LIGHT TURN ON, WENT TO GO CHECK ON PT, NOTICED PT WAS ON COMMODE. I DRESSED IN ISO PPO AND WENT INTO ROOM. UPON ENTERING I NOTICED HIS SPO2 WAS 55% ON BIPAP SITTING UP ON COMMODE. PT KEPT REPEATING, "I CAN'T BREATHE. I NEED OXYGEN". I SWITCHED FROM HIS BIPAP TO HIS HIGH FLOW NASAL CANNULA AND WE TURNED IT ALL THE WAY UP TO BRING SPO2 TO NORMAL LEVEL. THE PATIENT EXPRESSES THAT HE CAN'T BREATHE WELL ON THE BIPAP AND HE FEELS THAT HE GETS MORE AIR THROUGH THE NASAL CANNULA. ONCE WE MOVED PT BACK TO BED, WE LOWERED NASAL CANNULA BACK TO 8 LITERS PER DOCTORS REQUEST. PT CALLED THE AND SAID TO COME GET HIM AND HE WANTS TO GO HOME. NURSE BLANK IS CALLING DR. MAIER TO SEE WHAT WE NEED TO DO NEXT.
[2024-01-30] MEDS ORDERED: LORazepam 0.5 MG Tab PO ONE (15:20)
[2024-01-30 15:26] VITALS: BP 136/89
[2024-01-30] MEDS ORDERED: SENN187 PO (18:14)
--- NOTE | 2024-01-30 18:44 | NUR ---
SHIFT SUMMARY CAME AND VISITED AT LUNCH. PT DID NOT EAT ANY OF HIS MEAL TRAY THAT WAS DELIVERED, SO BROUGHT BEANS FOR HIM TO EAT. PT WAS PLACED ON BIPAP BY RT AND THEN PUT BACK ON NASAL CANNULA AT 8 LITERS ONCE SPO2 WAS BACK IN >90. TOLERATED SHOWER W/ HIGH FLOW NASAL CANNULA BUT ON 15 L OF O2. DOCTOR WANTED TO SEE PT TOLERATE ADL'S AT 8 LITERS IN ORDER TO GO HOME. VITAL SIGNS HAVE REMAINED WITHIN NORMAL LIMITS EXCEPT FOR DESAT EARLIER TODAY WHEN HE WAS STILL ON BIPAP AND MOBILIZED TO COMMODE (SEE PREVIOUS NOTE). RESPIRATIONS HAVE BEEN HIGH 20'S DUE TO THE DIFFICULTY BREATHING. DOCTOR ORDERED ATIVAN, GIVEN PER EMAR FOR ANXIETY THIS AFTERNOON. DIRECTOR OF CAPITAL GIVING DISCUSSED DISCHARGE PLAN WITH PT AND . TRILOGY WAS DELIVERED INTO ROOM, RT MADE AWARE TO SET UP. EDUCATED PT ABOUT PROPER USE OF CALL LIGHT FAR NEEDING TO INCREASE O2 WITH EXERTION.
[2024-01-30 19:41] VITALS: BP 148/88
[2024-01-30 23:41] VITALS: BP 149/97
--- NOTE | 2024-01-31 02:31 | NUR ---
ASSUMPTION OF CARE AFTER RECEIVING REPORT FROM ABHAY RN, THIS RN ASSUMED CARE AT APPROX 1915. PATIENT ALERT AND ORIENTED X4. COMMUNICATES NEEDS EFFECTIVELY. AT BEDSIDE ASSISTING WITH CARE PRN. TELEMETRY SHOWING SINUS 70s-80s. BP STABLE. DENIES CHEST PAIN, PRESSURE. AT REST, IS ON 4L VIA NC, SATs >90%. PATIENT DOES REQUIRE UP TO 8L WITH MOBILITY. L[place] AT BEDSIDE THIS EVENING TO SET UP TRILOGY. PATIENT TOLERATING USE OF DEVICE FOR <1 HOUR AT A TIME. ENCOURAGING USE OF DEVICE FREQUENTLY. PROVIDING EDUCATION PRN. PATIENT UP TO RESTROOM WITH SBA FOR CORD, DEVICE MANAGEMENT. REPORTS DECREASING EPISODES OF LOOSE STOOLS. REPOSITIONS HIMSELF INDEPENDENTLY IN BED. CALL LIGHT IN REACH.
[2024-01-31 04:17] VITALS: BP 140/82
--- NOTE | 2024-01-31 05:23 | NUR ---
SHIFT SUMMARY NO ACUTE EVENTS SINCE ASSUMPTION OF CARE. PATIENT SLEPT OR RESTED QUIETLY THROUGHOUT SHIFT. EASILY AROUSABLE TO VERBAL STIMULI. AT BEDSIDE THROUGHOUT. TELEMETRY SHOWING SINUS 80s-90s. BP STABLE. DENIES CHEST PAIN, PRESSURE. CURRENTLY ON 4L VIA NC, SATs >90%. PATIENT ABLE TO TOLERATE USING TRILOGY DEVICE TWO TIMES FOR APPROX ONE HOUR EACH TIME. PATIENT CURRENTLY DECLINING USE OF DEVICE, STATES "I WILL KEEP TRYING THROUGHOUT THE DAY TODAY." FREQUENT EDUCATION PROVIDED THROUGHOUT SHIFT REGARDING IMPORTANCE OF DEVICE COMPLIANCE. WITH AMBULATION TO RESTROOM, PATIENT DOES REQUIRE 6-8L VIA NC. VOIDING. X3 SMALL LOOSE BMs THIS SHIFT. CALL LIGHT IN REACH. WILL CONTINUE TO MONITOR AND REPORT TO ONCOMING RN.
[2024-01-31 05:57] LABS: BASOPHILS ABSOLUTE AUTO 0.04 K/mm3 (0.00-0.23); BASOPHILS PERCENT AUTO 0 % (0-2); EOSINOPHILS ABSOLUTE AUTO 0.46 K/mm3 (0.00-0.68); EOSINOPHILS PERCENT AUTO 4 % (0-6); Hematocrit 35.7 % (37.0-53.0); Hemoglobin 11.7 g/dL (13.5-17.5); IMMATURE GRAN ABSOLUTE AUTO 0.05 K/mm3 (0.00-0.10); IMMATURE GRAN PERCENT AUTO 0 % (0-1); LYMPHOCYTES ABSOLUTE AUTO 1.13 K/mm3 (0.84-5.20); LYMPHOCYTES PERCENT AUTO 9 % (21-46); MONOCYTES ABSOLUTE AUTO 0.82 K/mm3 (0.16-1.47); MONOCYTES PERCENT AUTO 6 % (4-13); Mean Corpuscular HGB 30.7 pg (26.0-34.0); Mean Corpuscular HGB Conc 32.8 g/dL (31.5-36.5); Mean Corpuscular Volume 94 fL (80-100); Mean Platelet Volume 9.6 fL (9.1-12.4); NEUTROPHILS ABSOLUTE AUTO 10.72 K/mm3 (1.96-9.15); NEUTROPHILS PERCENT AUTO 81 % (41-73); Platelet Count 375 K/mm3 (150-400); RDW Coefficient Variation 12.9 % (11.7-14.2); RDW Standard Deviation 44.2 fL (35.1-46.3); Red Blood Cell Count 3.81 M/mm3 (4.30-5.90); White Blood Cell Count 13.22 K/mm3 (4.00-11.30)
[2024-01-31 06:44] LABS: Calcium, Blood 9.1 mg/dL (8.5-10.1); Creatinine, Blood 0.67 mg/dL (0.60-1.20); Potassium, Blood 3.4 mmol/L (3.5-5.5)
[2024-01-31 08:11] VITALS: BP 137/91
--- NOTE | 2024-01-31 08:49 | NUR ---
AM SUMMARY PATIENT IS UP AND CHEERFUL THIS MORNING WITH SLEEPING AT BEDSIDE. HE REPORTED COMPLAINTS OF DULL PAIN IN LUNGS AND STATED THAT NURSE MEDICATED HIM WITH TYLENOL LASTNIGHT BUT THAT HE WANTED AN OXYCODONE. NURSE ABHAY GAVE OXYCODONE WITH THE PATIENT PAIN SCALE AT 8 OUT OF 10. NURSE REPORTED PT WAS NON-COMPLIANT LASTNIGHT WITH TRILOGY TREATMENT. DR. MATTHEWS AT BEDSIDE AT 0820. HE WOULD LIKE AN OXYGEN EVALUATION DONE PRIOR TO DISCHARGE. TOLD THAT HOME HEALTH THROUGH [facility] IS SET UP. PATIENT REPORTS THAT DIARRHEA IS GETTING BETTER SINCE BEING HERE. DR. MATTHEWS IS PLANNING FOR DISCHARGE IF OXYGEN EVAL GOES GOOD. PATIENT VITALS ARE WITHIN NORMAL LIMITS. CALL LIGHT IS WITHIN REACH, WILL REASSESS PAIN IN THE NEXT HOUR.
[2024-01-31] MEDS ORDERED: Potassium Chloride 20 MEQ TabCR PO ONE (11:00)
[2024-01-31] MEDS ORDERED: BUSPIRONE HCL7.5 M1 PO (11:03)
[2024-01-31] MEDS ORDERED: PRED20 (11:05)
[2024-01-31] MEDS ORDERED: METO25ER PO (11:06)
[2024-01-31] MEDS ORDERED: VANCOCIN HCL125 MG PO (11:07)
[2024-01-31] MEDS ORDERED: VISBIOME 112.51 EACH PO (11:08)
[2024-01-31 12:01] VITALS: BP 150/89
--- NOTE | 2024-01-31 13:08 | NUR ---
DISCHARGE SUMMARY 1100 DOCTOR ORDERED NEW SETTINGS FROM [facility] [facility] ARRIVED AT 1115 AND CHANGED SETTINGS WITH DOCTOR KELLY AT BEDSIDE. DOCTOR DISCUSSED HOME EXPECTATIONS WITH THE PATIENT GOING HOME. OXYGEN WAS MAINTAINING >90 ON 8 LITERS PER NASAL CANNULA UPON DISHARGE. ARRIVED AT 1230 TO PICK PATIENT UP AND TAKE HIM HOME. WENT OVER DISCHARGE PAPERWORK WITH PT INCLUDING MEDICATION CHANGES PER ORDERS BY DOCTOR. PRESCRIPTION SENT TO [facility]. PATIENT ACCOMPANIED VIA WHEELCHAIR WITH OXYGEN DURING DISCHARGE.
== END 2024-01-31 12:58 | disposition home or self-care (01) | DRG 196 ==
LOC: ER 08:10 → PCU 10:20
PROVIDERS: Student in an Organized Health Care Education/Training Program; ADMIT Internal Medicine
PROC: 4A033R1 Measurement of Arterial Saturation, Peripheral, Percutaneous Approach (ICD-10-PCS; principal; 2024-01-28)
PROC: 5A0935A Assistance with Respiratory Ventilation, Less than 24 Consecutive Hours, High Flow/Velocity Cannula (ICD-10-PCS; 2024-01-28)
PROC: 5A09357 Assistance with Respiratory Ventilation, Less than 24 Consecutive Hours, Continuous Positive Airway Pressure (ICD-10-PCS; 2024-01-28)
DX: J84.112 Idiopathic pulmonary fibrosis (principal); I26.99 Other pulmonary embolism without acute cor pulmonale; J96.21 Acute and chronic respiratory failure with hypoxia; J18.9 Pneumonia, unspecified organism; J96.22 Acute and chronic respiratory failure with hypercapnia; A04.72 Enterocolitis due to Clostridium difficile, not specified as recurrent; J94.8 Other specified pleural conditions; J90 Pleural effusion, not elsewhere classified; J44.0 Chronic obstructive pulmonary disease with (acute) lower respiratory infection; F29 Unspecified psychosis not due to a substance or known physiological condition; G62.9 Polyneuropathy, unspecified; I10 Essential (primary) hypertension; F41.9 Anxiety disorder, unspecified; F32.A Depression, unspecified; G47.00 Insomnia, unspecified; E78.5 Hyperlipidemia, unspecified; Z88.8 Allergy status to other drugs, medicaments and biological substances; Z88.2 Allergy status to sulfonamides; Z85.118 Personal history of other malignant neoplasm of bronchus and lung; Z79.899 Other long term (current) drug therapy; Z79.891 Long term (current) use of opiate analgesic; Z98.890 Other specified postprocedural states; Z87.891 Personal history of nicotine dependence
CPT/HCPCS: 0202U; 36415; 36600; 71045; 80048; 80053; 82803; 83605; 83735; 83880; 84145; 85025; 87040; 87324; 87507; 93005; 93010; 94660; 94761; 94762; 96365; 96375; 99285-25; A9270; J0456; J0692; J2920; J3370; J7030; J7050